=== PATIENT | female | born 1950 | race Caucasian/White ===

== ENCOUNTER → 2016-10-29 | Outpatient (CLI) | payer MEDICARE ==
--- NOTE | 2016-11-01 08:50 | MM ---
Reason for exam: screening (asymptomatic). Last mammogram was performed 1 year ago. History: Patient is postmenopausal. Family history of breast cancer in mother at age 50. Cyst aspiration of the left breast, 2006. Benign excisional biopsy of the left breast. Excisional biopsy of the right breast. Physical Findings: A clinical breast exam by your physician is recommended on an annual basis and results should be correlated with mammographic findings. MG 3D Screening Mammo W/Cad Bilateral CC and MLO view(s) were taken. Prior study comparison: October 17, 2015, bilateral MG 3d screening mammo w/cad. September 25, 2014, mammogram, performed at [facility]. September 03, 2013, mammogram, performed at [facility]. There are scattered fibroglandular densities. Finding: There are typically benign dystrophic, round calcifications in both breasts. There is a chronic nodularity bilaterally. There is no discrete abnormality. ASSESSMENT: Benign, BI-RAD 2 RECOMMENDATION: Routine screening mammogram of both breasts in 1 year.
== END | disposition home or self-care (01) ==
LOC: RADMAMWWP 10:16
PROVIDERS: ATTEND Family Medicine
DX: Z12.31 Encounter for screening mammogram for malignant neoplasm of breast (principal)
CPT/HCPCS: 77063; G0202

== ENCOUNTER → 2017-05-20 | Outpatient (CLI) | payer MEDICARE ==
--- NOTE | 2017-05-20 11:19 | US ---
EXAMINATION TYPE: US thyroid st tissue head/neck DATE OF EXAM: 05/20/2017 COMPARISON: US CLINICAL HISTORY: E04.1 THYROID NODULE. GLAND SIZE: Right Lobe: 4.4 x 2.7 x 3.2 cm Overall Parenchyma: heterogenous Left Lobe: 3.9 x 1.7 x 1.7 cm Overall Parenchyma: heterogeneous Isthmus Thickness: 0.4 cm NODULES RIGHT: # of nodules measured on right: 1 1. 3.9 X 2.6 x 3.0 cm hypoechoic mixed nodule at the mid pole with well-defined margins; present wi th microcalcifications. This nodule is wider than tall and shows intranodular vascularity. Prior size: 3.6 x 2.4 x 2.8 cm LEFT: # of nodules measured on left: 0 ISTHMUS: # of nodules measured in the isthmus: 0 Bilateral neck scanned, no evidence of lymphadenopathy. Right sided nodule takes up entire gland. IMPRESSION: Large right thyroid nodule measuring 3.9 cm slightly increased from the previous exam where it measur ed 3.6 cm. Heterogeneous tissue suggests thyroiditis. Correlate clinically.
== END | disposition home or self-care (01) ==
LOC: RADUSWWP 10:51
PROVIDERS: ATTEND Internal Medicine Endocrinology, Diabetes & Metabolism
DX: E04.1 Nontoxic single thyroid nodule (principal)
CPT/HCPCS: 76536

== ENCOUNTER → 2017-11-23 | Outpatient (CLI) | payer MEDICARE ==
--- NOTE | 2017-11-23 15:14 | MM ---
Reason for exam: screening (asymptomatic). Last mammogram was performed 1 year and 1 month ago. History: Patient is postmenopausal. Family history of breast cancer in mother at age 50. Cyst aspiration of the left breast, 2006. Benign excisional biopsy of the left breast. Excisional biopsy of the right breast. Physical Findings: A clinical breast exam by your physician is recommended on an annual basis and results should be correlated with mammographic findings. MG 3D Screening Mammo W/Cad Bilateral CC and MLO view(s) were taken. Prior study comparison: October 29, 2016, bilateral MG 3d screening mammo w/cad. October 17, 2015, bilateral MG 3d screening mammo w/cad. The breast tissue is heterogeneously dense. This may lower the sensitivity of mammography. Stable benign calcifications. There is no discrete abnormality. No significant changes when compared with prior studies. ASSESSMENT: Benign, BI-RAD 2 RECOMMENDATION: Routine screening mammogram of both breasts in 1 year.
== END | disposition home or self-care (01) ==
LOC: RADMAMWWP 09:02
PROVIDERS: ATTEND Family Medicine
DX: Z12.31 Encounter for screening mammogram for malignant neoplasm of breast (principal)
CPT/HCPCS: 77063; 77067

== ENCOUNTER → 2018-04-25 | Outpatient (CLI) | payer MEDICARE ==
[2018-04-26 03:14] LABS: Folate, Serum 23.5 ng/mL
[2018-04-26 03:35] LABS: T4, Free (Free Thyroxine) 1.2 ng/dL (0.80-1.80)
== END ==
LOC: LABWHC1 16:03
PROVIDERS: ATTEND Internal Medicine Endocrinology, Diabetes & Metabolism
DX: E04.1 Nontoxic single thyroid nodule (principal); E55.9 Vitamin D deficiency, unspecified; Z98.84 Bariatric surgery status
CPT/HCPCS: 36415; 82607; 82746; 84207; 84425; 84439; 84443; 84480

== ENCOUNTER → 2018-10-09 | Outpatient (CLI) | payer MEDICARE ==
[2018-10-09 18:55] LABS: Parathyroid Hormone Intact 69.7 pg/mL (14.0-72.0)
[2018-10-09 20:20] LABS: Albumin 4.2 g/dL (3.80-4.90); Albumin/Globulin Ratio 2.21 (1.60-3.17); Anion Gap 12.4 mmol/L (4.00-12.00); Calcium 9.1 mg/dL (8.7-10.3); Carbon Dioxide 22.6 mmol/L (21.6-31.8); Globulin 1.9 g/dL (1.6-3.3); Potassium 4.3 mmol/L (3.5-5.5); Total Bilirubin 0.8 mg/dL (0.2-1.2); Total Protein 6.1 g/dL (6.2-8.2)
[2018-10-09 20:23] LABS: Vitamin D 25 Hydroxy 51.8 ng/mL (30.0-100.0)
== END ==
LOC: LABWHC1 12:08
PROVIDERS: ATTEND Internal Medicine Endocrinology, Diabetes & Metabolism
DX: E55.9 Vitamin D deficiency, unspecified (principal); E04.1 Nontoxic single thyroid nodule; M81.0 Age-related osteoporosis without current pathological fracture
CPT/HCPCS: 36415; 77080; 80053; 82306; 83970; 84443

== ENCOUNTER → 2018-10-09 | Outpatient (CLI) | payer MEDICARE ==
--- NOTE | 2018-10-09 14:13 | BD ---
EXAMINATION TYPE: Axial Bone Density DATE OF EXAM: 10/09/2018 COMPARISON: 2016 CLINICAL HISTORY: age related osteoporosis Height: 5'3 Weight: 238 FRAX RISK QUESTIONS: Family History (Parent hip fracture): y Secondary Osteoporosis: RISK FACTORS HISTORY OF: Family History of Osteoporosis: y Active: n Postmenopausal woman: y MEDICATIONS: Additional Medications: pain Additional History: EXAM MEASUREMENTS: Bone mineral densitometry was performed using the [employer] System. Bone mineral density as measured about the Lumbar spine is: ----- L1-L4(G/cm2): 0.868 T Score Values are as follows: ----- L2: -2.5 ----- L3: -2.9 ----- L4: -1.3 ----- L1-L4: -2.6 Bone mineral density has: Decreased -6.3%:since study of: 03/04/2016 Bone mineral density about the R hip (g/cm2): 0.807 Bone mineral density about the L hip (g/cm2): 0.773 T Score values are as follows: -----R Neck: -1.7 -----L Neck: -1.9 -----R Total: -1.9 -----L Total: -2.0 Bone mineral density has: Decreased -0.8% since study of: 03/04/2016 IMPRESSION: Osteoporosis (T Score less than -2.5). There is increased fracture risk and therapy is usually indicated based on age. Re-Screen 1-2 years. NOTE: T-SCORE=SD OF THE YOUNG ADULT MEAN.
== END ==
LOC: RADBDWWP 12:13
PROVIDERS: ATTEND Internal Medicine Endocrinology, Diabetes & Metabolism
DX: M81.0 Age-related osteoporosis without current pathological fracture (principal)
CPT/HCPCS: 77080

== ENCOUNTER → 2018-11-06 | Outpatient (CLI) | payer MEDICARE ==
[~2018-11-06] MED LIST: DENOSUMAB 60 MG/ML 1 ML SYRINGE SQ NR
[2018-11-06 14:42] VITALS: BP 121/81; PULSE 73; RESP 16; TEMP 98
== END ==
LOC: PROCWHC3 14:10
PROVIDERS: ATTEND Internal Medicine Endocrinology, Diabetes & Metabolism
DX: M81.0 Age-related osteoporosis without current pathological fracture (principal)
CPT/HCPCS: 96372; J0897

== ENCOUNTER → 2018-11-28 | Outpatient (CLI) | payer MEDICARE ==
--- NOTE | 2018-11-29 10:04 | MM ---
Reason for exam: screening (asymptomatic). Last mammogram was performed 1 year ago. History: Patient is postmenopausal. Family history of breast cancer in mother at age 50 and breast cancer in paternal grandmother. Cyst aspiration of the left breast, 2006. Benign excisional biopsy of the left breast. Excisional biopsy of the right breast. Physical Findings: A clinical breast exam by your physician is recommended on an annual basis and results should be correlated with mammographic findings. MG 3D Screening Mammo W/Cad Bilateral CC and MLO view(s) were taken. Prior study comparison: November 23, 2017, bilateral MG 3d screening mammo w/cad. October 29, 2016, bilateral MG 3d screening mammo w/cad. The breast tissue is heterogeneously dense. This may lower the sensitivity of mammography. Stable benign calcifications in the left breast. There is no discrete abnormality. No significant changes when compared with prior studies. ASSESSMENT: Benign, BI-RAD 2 RECOMMENDATION: Routine screening mammogram of both breasts in 1 year.
== END | disposition home or self-care (01) ==
LOC: RADMAMWWP 13:39
PROVIDERS: ATTEND Family Medicine
DX: Z12.31 Encounter for screening mammogram for malignant neoplasm of breast (principal)
CPT/HCPCS: 77063; 77067

== ENCOUNTER → 2019-04-09 | Outpatient (CLI) | payer MEDICARE ==
[2019-04-09 11:28] LABS: African American GFR (CKD) 103.2 (60.0-200.0); Albumin 4.1 g/dL (3.80-4.90); Albumin/Globulin Ratio 2.05 (1.60-3.17); Anion Gap 10.5 mmol/L (4.00-12.00); BUN/Creat Ratio 18.57 Ratio (12.00-20.00); Calcium 9.2 mg/dL (8.7-10.3); Carbon Dioxide 23.5 mmol/L (21.6-31.8); Potassium 4.4 mmol/L (3.5-5.5); Total Bilirubin 0.9 mg/dL (0.3-1.2); Total Protein 6.1 g/dL (6.2-8.2)
[2019-04-09 11:38] LABS: T4, Free (Free Thyroxine) 1.3 ng/dL (0.80-1.80)
[2019-04-11 20:03] LABS: Creatinine Urine Random 131 mg/dL (20-275); N-Telopeptides/Creat Ratio, Ur 47
== END | disposition home or self-care (01) ==
LOC: LABWHC1 07:27
PROVIDERS: ATTEND Internal Medicine Endocrinology, Diabetes & Metabolism
DX: M81.0 Age-related osteoporosis without current pathological fracture (principal); E04.1 Nontoxic single thyroid nodule
CPT/HCPCS: 36415; 80053; 82523; 84439; 84443

== ENCOUNTER → 2019-05-11 | Outpatient (CLI) | payer MEDICARE ==
[~2019-05-11] MED LIST changes: -DENOSUMAB 60 MG/ML 1 ML SYRINGE SQ NR; +DENOSUMAB 60 MG/ML 1 ML SYRINGE SQ ONE
[2019-05-11 14:20] VITALS: BP 122/81; PULSE 71; RESP 16; TEMP 97.9
== END | disposition home or self-care (01) ==
LOC: PROCWHC3 13:51
PROVIDERS: ATTEND Internal Medicine Endocrinology, Diabetes & Metabolism
DX: M81.0 Age-related osteoporosis without current pathological fracture (principal)
CPT/HCPCS: 96372; J0897

== ENCOUNTER → 2019-05-25 | Outpatient (CLI) | payer MEDICARE | END | disposition home or self-care (01) | LOC: LABWHC1 10:33 | PROVIDERS: ATTEND Internal Medicine Endocrinology, Diabetes & Metabolism | DX: E03.9 Hypothyroidism, unspecified (principal) | CPT/HCPCS: 36415; 84443 ==

== ENCOUNTER → 2020-04-15 | Outpatient (CLI) | payer MEDICARE ==
--- NOTE | 2020-04-15 15:29 | US ---
EXAMINATION TYPE: US thyroid st tissue head/neck DATE OF EXAM: 04/15/2020 COMPARISON: 05/20/2017 CLINICAL HISTORY: E04.1 NONTOXIC SINGLE THYROID NODULE. GLAND SIZE: Right Lobe: Surgically absent Left Lobe: 5.0 x 1.9 x 1.9 cm Overall Parenchyma: heterogeneous Isthmus Thickness: 0.3 cm NODULES RIGHT: # of nodules measured on right: removed LEFT: # of nodules measured on left: 1 1. 0.6 x 0.4 x 0.6 cm hypoechoic solid nodule at the mid pole with margins. This nodule is wider henry n tall and shows intranodular vascularity. No prior ISTHMUS: # of nodules measured in the isthmus: 0 Bilateral neck scanned, no evidence of lymphadenopathy. IMPRESSION: Nonspecific Subcentimeter solid nodule mid pole left thyroid lobe.
== END | disposition home or self-care (01) ==
LOC: RADUSWWP 14:44
PROVIDERS: ATTEND Internal Medicine Endocrinology, Diabetes & Metabolism
DX: E04.1 Nontoxic single thyroid nodule (principal)
CPT/HCPCS: 76536

== ENCOUNTER → 2020-10-13 | Outpatient (CLI) | payer MEDICARE ==
[2020-10-13 14:49] LABS: T4, Free (Free Thyroxine) 1.4 ng/dL (0.78-2.19)
--- NOTE | 2020-10-13 21:20 | BD ---
EXAMINATION TYPE: Axial Bone Density DATE OF EXAM: 10/13/2020 COMPARISON: 10/09/2018 CLINICAL HISTORY: 69-year-old female postmenopausal screening Height: 5 FT 3 1/2 IN Weight: 251 FRAX RISK QUESTIONS: Alcohol (3 or more units per day): NO Family History (Parent hip fracture): YES Glucocorticoids (More than 3mos): NO (Ex: prednisone, prednisolone, methylprednisolone, dexamethasone, and hydrocortisone). History of Fracture in Adulthood: NO Secondary Osteoporosis: 1. Type 1 Diabetes: NO 2. Hyperthyroidism: REMOVED HALF BECAUSE OF A BENIGN TUMOR 3. Menopause before 45: UNSURE 4. Malnutrition: NO 5. Chronic liver disease: NO Rheumatoid Arthritis: NO Current Tobacco Use: NO RISK FACTORS HISTORY OF: Surgery to Spine/Hip(right/left)/Wrist (right/left): NO Family History of Osteoporosis: YES Active: NO Diet low in dairy products/other sources of calcium: NO Postmenopausal woman: PART HYST LATE 40'S Take estrogen and/or progesterone medications: TOOK HRT SEV YEARS IN HER 50'S NO LONGER Lost more than 2 inches in height since high school: NO MEDICATIONS: Additional Medications: MELOXICAM, LEVOTHYROXINE Additional History: PT HAS HAD FOUR INJ OF PROLIA IN THE LAST TWO YEARS EXAM MEASUREMENTS: Bone mineral densitometry was performed using the [employer] System. Bone mineral density as measured about the Lumbar spine is: ----- L1-L4(G/cm2): 0.919 T Score Values are as follows: ----- L2: -2.4 ----- L3: -2.5 ----- L4: -1.2 ----- L1-L4: -2.2 Bone mineral density has: INCREASED 3.5 % since study of: 2018 Bone mineral density about the R hip (g/cm2): 0.775 Bone mineral density about the L hip (g/cm2): 0.787 T Score values are as follows: -----R Neck: -1.9 -----L Neck: -1.8 -----R Total: -2.0 -----L Total: -1.7 Bone mineral density has: INCREASED 1.8 % since study of: 2018 IMPRESSION: Osteopenia (T Score between -2.5 and -1). There is slightly increased risk of fracture and the patient may be considered for treatment. Re-Screen 2-5 years. NOTE: T-SCORE=SD OF THE YOUNG ADULT MEAN.
== END | disposition home or self-care (01) ==
LOC: RADBDWWP 12:48
PROVIDERS: ATTEND Internal Medicine Endocrinology, Diabetes & Metabolism
DX: M85.80 Other specified disorders of bone density and structure, unspecified site (principal); E04.2 Nontoxic multinodular goiter; E55.9 Vitamin D deficiency, unspecified
CPT/HCPCS: 77080; 82306; 84439; 84443

== ENCOUNTER → 2020-11-19 | Outpatient (CLI) | payer MEDICARE ==
--- NOTE | 2020-11-19 13:02 | XR ---
EXAMINATION TYPE: XR lumbar spine 2 or 3V DATE OF EXAM: 11/19/2020 COMPARISON: NONE HISTORY: Pain mostly in the right knee and lower back TECHNIQUE: AP, lateral and coned-down lateral views of the lumbar spine were obtained. FINDINGS: There are 5 nonrib-bearing lumbar-type vertebral bodies. Diffuse bony demineralization.. Th ere is maintenance of the normal lumbar lordosis. There is no loss of vertebral body height. There is mild narrowing of the intervertebral disc space at L5-S1. Diffuse degenerative changes of the facets . Prominent anterior superior osteophyte at the L4 vertebral body level. Severe atherosclerotic calci nation of the abdominal aorta is noted. Mild anterolisthesis of L4 on L5 and L5 on S1. IMPRESSION: 1. No evidence of acute fracture or dislocation lumbar spine. 2. Diffuse bony demineralization. 3. Mild anterolisthesis of L4 on L5 and L5 on S1. Degenerative changes of the facets.
== END | disposition home or self-care (01) ==
LOC: RADXRMAIN 08:56
PROVIDERS: ATTEND Internal Medicine
DX: M47.816 Spondylosis without myelopathy or radiculopathy, lumbar region (principal); M43.16 Spondylolisthesis, lumbar region
CPT/HCPCS: 72100

== ENCOUNTER → 2021-02-20 | Outpatient (CLI) | payer MEDICARE ==
[2021-02-20 15:43] LABS: African American GFR (CKD) 86.6 (60.0-200.0); Albumin 4.2 g/dL (3.80-4.90); Albumin/Globulin Ratio 1.91 (1.60-3.17); Anion Gap 9.2 mmol/L (4.00-12.00); BUN/Creat Ratio 23.75 Ratio (12.00-20.00); Calcium 9.3 mg/dL (8.7-10.3); Carbon Dioxide 23.8 mmol/L (21.6-31.8); Globulin 2.2 g/dL (1.6-3.3); Non-African American GFR(CKD) 74.7 (60.0-200.0); Potassium 4.3 mmol/L (3.5-5.5); Total Bilirubin 0.7 mg/dL (0.2-1.2); Total Protein 6.4 g/dL (6.2-8.2)
== END | disposition home or self-care (01) ==
LOC: LABWHC1 10:26
PROVIDERS: ATTEND Internal Medicine Endocrinology, Diabetes & Metabolism
DX: M81.0 Age-related osteoporosis without current pathological fracture (principal)
CPT/HCPCS: 36415; 80053

== ENCOUNTER → 2021-03-27 | Outpatient (CLI) | payer MEDICARE ==
[~2021-03-27] MED LIST changes: +DENOSUMAB 60 MG/ML 1 ML SYRINGE SQ NR; -DENOSUMAB 60 MG/ML 1 ML SYRINGE SQ ONE
[2021-03-27 10:39] VITALS: BP 121/78; PULSE 82; RESP 16; TEMP 98.8
== END ==
LOC: PROCWHC3 10:12
PROVIDERS: ATTEND Internal Medicine Endocrinology, Diabetes & Metabolism
DX: M81.0 Age-related osteoporosis without current pathological fracture (principal)
CPT/HCPCS: 96372; J0897

== ENCOUNTER → 2021-03-30 | Outpatient (CLI) | payer MEDICARE ==
[2021-03-30 14:58] LABS: Albumin 4.1 g/dL (3.5-5.0); Calcium 8.6 mg/dL (8.4-10.2); Potassium 4.3 mmol/L (3.5-5.1); Total Bilirubin 0.6 mg/dL (0.2-1.3); Total Protein 6.7 g/dL (6.3-8.2)
--- NOTE | 2021-03-30 15:00 | US ---
EXAMINATION TYPE: US thyroid st tissue head/neck DATE OF EXAM: 03/30/2021 COMPARISON: Multiple US. latest = 04/15/20 CLINICAL HISTORY: E04.1 Nontoxic single thyroid nodule. Rt lobe removed GLAND SIZE: Right Lobe: Removed cm Left Lobe: 5.0 x 1.8 x 1.4 cm Overall Parenchyma: heterogeneous Isthmus Thickness: 0.4 cm NODULES RIGHT: # of nodules measured on right: 0 LEFT: # of nodules measured on left: 3 1. 0.6 X 0.6 x 0.4 cm, mid mid, mixed cystic and solid, hypoechoic nodule, which is wider than tall , with smooth margins, without echogenic foci. Prior size: 0.6 x 0.4 x 0.6 cm 2. 0.7 X 0.9 x 0.5 cm, upper mid, solid or almost completely solid, isoechoic nodule, which is wid er than tall, with ill-defined margins, without echogenic foci. TR3. Prior size: Not seen previously 3. 0.9 X 0.7 x 0.6 cm, upper mid, mixed cystic and solid, hypoechoic nodule, which is wider than ta ll, with smooth margins, without echogenic foci. Prior size: Not seen previously ISTHMUS: # of nodules measured in the isthmus: 0 Bilateral neck scanned, no evidence of lymphadenopathy. Multiple other subcentimeter nodules throughout left lobe. IMPRESSION: Mildly suspicious nodule left lobe thyroid. 2017 ACR TI-RADS LEVEL: TR-RADS 3 - Mildly Suspicious: Follow if > 1.5 cm, FNA if > 2.5 cm *Highest TI-RADS level nodule reported
== END | disposition home or self-care (01) ==
LOC: RADUSWWP 14:00
PROVIDERS: ATTEND Internal Medicine Endocrinology, Diabetes & Metabolism
DX: E04.2 Nontoxic multinodular goiter (principal)
CPT/HCPCS: 76536; 80053; 82306; 82523; 83970; 84443

== ENCOUNTER → 2021-06-09 | Outpatient (CLI) | payer MEDICARE ==
--- NOTE | 2021-06-09 15:28 | US ---
EXAMINATION TYPE: US kidneys/renal and bladder DATE OF EXAM: 06/09/2021 COMPARISON: NONE CLINICAL HISTORY: N17.9 acute kidney failure. EXAM MEASUREMENTS: Right Kidney: 14.2x5.7x5.9 cm Left Kidney: 10.5x6.1x5.8 cm Right Kidney: INF cyst 5.6x5.5x5.3cm Left Kidney: INF/ MED cyst 2.6x2.7x2.3cm Bladder: Empty There is no evidence for hydronephrosis at this point in time. No nephrolithiasis is seen. Partially exophytic 5.6 cm thin-walled cyst lower pole of the right kidney and smaller 2.6 cm thin-walled cyst lower pole right kidney. The urinary bladder is poorly distended and is thus suboptimally evaluated . Bilateral ureteral jets are not seen. IMPRESSION: No hydronephrosis is seen bilaterally.
--- NOTE | 2021-06-10 10:00 | ECHOF ---
Referral Reason:N17.9 acute kidney failure MEASUREMENTS -------- HEIGHT: 160.0 cm WEIGHT: 108.9 kg BP: IVSd: 1.1 cm (0.6 - 1.1) LVIDd: 4.1 cm (3.9 - 5.3) LVPWd: 1.4 cm (0.6 - 1.1) EDV(Teich): 76 ml IVSs: 1.7 cm LVIDs: 2.9 cm LVPWs: 1.8 cm %IVS Thck: 48 % ESV(Teich): 32 ml EF(Teich): 58 % %FS: 30 % SV(Teich): 44 ml LA Diam: 3.8 cm (2.7 - 3.8) LALs A4C: 5.4 cm LAAs A4C: 16.7 cm LAESV A-L A4C: 44 ml LAESV MOD A4C: 42 ml LALs A2C: 5.4 cm LAAs A2C: 16.9 cm LAESV A-L A2C: 45 ml LAESV MOD A2C: 43 ml LAESV(A-L): 44 ml LAESV Index (A-L): 21.27 ml/m Ao Diam: 2.4 cm (2.0 - 3.7) LA Diam: 3.9 cm (2.7 - 3.8) AV Cusp: 1.4 cm (1.5 - 2.6) MV E Mario: 0.42 m/s MV DecT: 297 ms MV Dec [place]: 1.4 m/s MV A Mario: 0.76 m/s MV E/A Ratio: 0.56 MV PHT: 86 ms LVOT Vmax: 1.36 m/s LVOT maxP.38 mmHg LVOT Vmax: 1.39 m/s LVOT Vmean: 0.99 m/s LVOT maxP.78 mmHg LVOT meanP.26 mmHg LVOT Env.Ti: 263 ms LVOT VTI: 25.9 cm AV Vmax: 2.05 m/s AV maxP.86 mmHg AV Vmax: 2.13 m/s AV Vmean: 1.40 m/s AV maxP.10 mmHg AV meanP.85 mmHg AV Env.Ti: 240 ms AV VTI: 33.5 cm FINDINGS -------- Sinus rhythm. This was a technically adequate study. The left ventricular size is normal. Left ventricular wall thickness is normal. Overall left vent ricular systolic function is normal with, an EF between 55 - 60 %. The right ventricle is normal in size. Normal LA size by volume 22+/-6 ml/m2. The right atrial size is normal. There is mild aortic stenosis present. The maximum pressure gradient across the aortic valve is 18. 10mmHg. The mitral valve leaflets are mildly thickened. Mild mitral regurgitation is present. Mild tricuspid regurgitation present. Right ventricular systolic pressure is normal at < 35 mmHg. There is no pulmonic regurgitation present. The aortic root size is normal. There is no pericardial effusion. CONCLUSIONS -------- 1. The left ventricular size is normal. 2. Left ventricular wall thickness is normal. 3. Overall left ventricular systolic function is normal with, an EF between 55 - 60 %. 4. The right ventricle is normal in size. 5. Normal LA size by volume 22+/-6 ml/m2. 6. The right atrial size is normal. 7. There is mild aortic stenosis present. 8. The maximum pressure gradient across the aortic valve is 18.10mmHg. 9. The mitral valve leaflets are mildly thickened. 10. Mild mitral regurgitation is present. 11. Mild tricuspid regurgitation present. 12. There is no pulmonic regurgitation present. 13. The aortic root size is normal. 14. There is no pericardial effusion. CATERING DIRECTOR: Naomie Rodrigues RDCS
== END | disposition home or self-care (01) ==
LOC: RADECHMAIN 14:29
PROVIDERS: ATTEND Internal Medicine
DX: N17.9 Acute kidney failure, unspecified (principal); I08.3 Combined rheumatic disorders of mitral, aortic and tricuspid valves
CPT/HCPCS: 76770; 93306

== ENCOUNTER → 2021-06-13 | Outpatient (CLI) | payer MEDICARE ==
--- NOTE | 2021-06-13 13:06 | MR ---
EXAMINATION TYPE: MR lumbar spine wo con DATE OF EXAM: 06/13/2021 COMPARISON: Plain film 11/19/2020 HISTORY: Spondylosis of lumbar region, pain TECHNIQUE: Multiplanar, multisequence images of the lumbar spine were acquired without IV contrast. L1-L2: Normal disc appearance without desiccation. No herniation, protrusion or disc bulging. No ca nal stenosis is present. Foramina are patent bilaterally. L2-L3: Normal disc appearance without desiccation. No herniation, protrusion or disc bulging. No ca nal stenosis is present. Foramina are patent bilaterally. L3-L4: Normal disc appearance without desiccation. No herniation, protrusion or disc bulging. No ca nal stenosis is present. Foramina are patent bilaterally. There is some facet arthropathy with hyper trophy ligamentum flavum L4-L5: There is facet arthropathy with hypertrophy ligamentum flavum, probable synovial cyst extends from the left facet measuring 6 to 7 mm causing posterior lateral mass effect on the thecal sac, left greater than right, there is encroachment on the lateral recesses. There is a trefoil appearance of the thecal sac, moderate to severe spinal stenosis. L5-S1: Normal disc appearance without desiccation. No herniation, protrusion or disc bulging. No ca nal stenosis is present. Foramina are patent bilaterally. Facet arthropathy changes present. Lumbar segments are intact. No paraspinal masses are identified. Conus medullaris has a normal appe arance. Lumbar vertebral bodies show preserved height and there is no significant foraminal encroachm ent. There is multilevel spondylosis with endplate discogenic marrow signal change. Minimal anterolis thesis grade 1 L5-S1, L4-5. Cortical cysts are associated with the kidneys bilaterally. IMPRESSION: Facet arthropathy, degenerative disc disease, there is spinal stenosis greatest at L4-5.
== END | disposition home or self-care (01) ==
LOC: RADMRIMAIN 11:20
PROVIDERS: ATTEND Internal Medicine
DX: M47.816 Spondylosis without myelopathy or radiculopathy, lumbar region (principal); M48.061 Spinal stenosis, lumbar region without neurogenic claudication; M51.36 Other intervertebral disc degeneration, lumbar region
CPT/HCPCS: 72148

== ENCOUNTER → 2021-07-06 | Outpatient (CLI) | payer MEDICARE ==
--- NOTE | 2021-07-06 11:38 | MM ---
Reason for exam: screening (asymptomatic). Last mammogram was performed 2 years and 7 months ago. History: Patient is postmenopausal. Family history of breast cancer in mother at age 50 and breast cancer in paternal grandmother. Cyst aspiration of the left breast, 2006. Benign excisional biopsy of the left breast. Excisional biopsy of the right breast. Physical Findings: A clinical breast exam by your physician is recommended on an annual basis and results should be correlated with mammographic findings. MG 3D Screening Mammo W/Cad Bilateral CC and MLO view(s) were taken. Prior study comparison: November 28, 2018, bilateral MG 3d screening mammo w/cad. November 23, 2017, bilateral MG 3d screening mammo w/cad. There are scattered fibroglandular densities. Finding: There are typically benign vascular, round, linear calcifications. There is a chronic nodularity in the right breast. There is no discrete abnormality. ASSESSMENT: Benign, BI-RAD 2 RECOMMENDATION: Routine screening mammogram of both breasts in 1 year.
== END | disposition home or self-care (01) ==
LOC: RADMAMWWP 09:07
PROVIDERS: ATTEND Internal Medicine
DX: Z12.31 Encounter for screening mammogram for malignant neoplasm of breast (principal); Z80.3 Family history of malignant neoplasm of breast; Z78.0 Asymptomatic menopausal state
CPT/HCPCS: 77063; 77067

== ENCOUNTER → 2021-07-16 | Outpatient (CLI) | payer MEDICARE ==
[2021-07-16 08:46] LABS: Appearance,Urine Clear (Clear); Bacteria,Urine Rare /hpf; Bilirubin,Urine Negative (Negative); Blood,Urine Negative (Negative); Color,Urine Yellow; Glucose,Urine (UA) Negative (Negative); Ketones,Urine Negative (Negative); Leukocyte Esterase,Urine Small (Negative); Mucus,Urine Rare /hpf; Nitrite,Urine Negative (Negative); Protein,Urine Negative (Negative); RBC,Urine <1 /hpf (0-5); Specific Gravity,Urine 1.025 (1.001-1.035); Squamous Epithelial Cell,Urine 1 /hpf (0-4); Urobilinogen,Urine <2.0 mg/dL (<2.0); WBC,Urine 2 /hpf (0-5)
[2021-07-16 11:04] LABS: Basophils # (A) 0.04 X 10*3/uL (0.00-0.10); Basophils % (A) 0.7 %; Eosinophils # (A) 0.12 X 10*3/uL (0.04-0.35); HGB 13.4 g/dL (12.0-15.0); Lymphocytes # (A) 1.77 X 10*3/uL (0.90-5.00); Lymphocytes % (A) 29.4 %; MCH 29.8 pg (27.0-32.0); MCHC 31.9 g/dL (32.0-37.0); MCV 93.5 fL (80.0-97.0); Mean Platelet Volume 9.5 fL (9.5-12.2); Monocytes # (A) 0.63 X 10*3/uL (0.20-1.00); Monocytes % (A) 10.4 %; Neutrophils # (A) 3.46 X 10*3/uL (1.80-7.70); Neutrophils % (A) 57.3 %; Platelet Count 332 X 10*3/uL (140-440); RBC 4.49 X 10*6/uL (4.10-5.20); RDW 12.4 % (11.5-14.5); WBC 6.03 X 10*3/uL (4.50-10.00)
[2021-07-16 11:25] LABS: ALT 18 U/L (8-44); AST 20 U/L (13-35); African American GFR (CKD) 101.7 (60.0-200.0); Alkaline Phosphatase 79 U/L (41-126); BUN/Creat Ratio 19.29 Ratio (12.00-20.00); Blood Urea Nitrogen 13.5 mg/dL (9.0-27.0); Calcium 8.9 mg/dL (8.7-10.3); Carbon Dioxide 21.4 mmol/L (20.0-27.5); Chloride 105 mmol/L (96-109); Chol/HDL Ratio 3.23 Ratio; Globulin 2.1 g/dL (1.6-3.3); Glucose 103 mg/dL (70-110); LDL Cholesterol,Calculated 125.8 mg/dL (0.0-131.0); Non-African American GFR(CKD) 87.8 (60.0-200.0); Potassium 4.2 mmol/L (3.5-5.5); Sodium 138 mmol/L (135-145); Total Protein 6.1 g/dL (6.2-8.2)
== END | disposition home or self-care (01) ==
LOC: LABWHC1 07:21
PROVIDERS: ATTEND Internal Medicine
DX: E03.9 Hypothyroidism, unspecified (principal); E78.2 Mixed hyperlipidemia; N17.9 Acute kidney failure, unspecified; N28.1 Cyst of kidney, acquired
CPT/HCPCS: 36415; 80053; 80061; 81001; 84439; 84443; 85025

== ENCOUNTER → 2021-08-26 | Outpatient (CLI) | payer MEDICARE ==
--- NOTE | 2021-08-26 12:40 | XR ---
EXAMINATION TYPE: XR chest 2V DATE OF EXAM: 08/26/2021 COMPARISON: NONE TECHNIQUE: PA and lateral views submitted. HISTORY: Preop FINDINGS: The lungs are clear and there is no pneumothorax, pleural effusion, or focal pneumonia. Coarsened i nterstitium. Mild degenerative change spine. Diffuse osteopenia. IMPRESSION: 1. No acute process. Correlate for mild chronic interstitial lung disease.
[2021-08-26 13:14] LABS: Partial Thromboplastin Time 23.9 sec (22.0-30.0); Prothrombin Time 11.3 sec (9.0-12.0)
[2021-08-26 14:22] LABS: Appearance,Urine Clear (Clear); Bacteria,Urine Rare /hpf; Bilirubin,Urine Negative (Negative); Blood,Urine Negative (Negative); Color,Urine Yellow; Glucose,Urine (UA) Negative (Negative); Hyaline Casts,Urine 1 /lpf (0-2); Ketones,Urine Negative (Negative); Leukocyte Esterase,Urine Moderate (Negative); Mucus,Urine Rare /hpf; Nitrite,Urine Negative (Negative); Protein,Urine Negative (Negative); RBC,Urine 1 /hpf (0-5); Specific Gravity,Urine 1.017 (1.001-1.035); Squamous Epithelial Cell,Urine 2 /hpf (0-4); Urobilinogen,Urine <2.0 mg/dL (<2.0); WBC,Urine 2 /hpf (0-5)
[2021-08-26 19:00] LABS: Basophils # (A) 0.06 X 10*3/uL (0.00-0.10); Basophils % (A) 0.8 %; Eosinophils # (A) 0.13 X 10*3/uL (0.04-0.35); Eosinophils % (A) 1.7 %; HCT 42.2 % (37.2-46.3); HGB 13.5 g/dL (12.0-15.0); Immature Grans, Automated 0.3 %; Lymphocytes # (A) 2.17 X 10*3/uL (0.90-5.00); MCH 30.1 pg (27.0-32.0); Monocytes # (A) 0.81 X 10*3/uL (0.20-1.00); Monocytes % (A) 10.5 %; NRBC Per 100 WBC 0 /100 WBCS (0.0-0.0); Neutrophils # (A) 4.56 X 10*3/uL (1.80-7.70); Neutrophils % (A) 58.7 %; Platelet Count 316 X 10*3/uL (140-440); RBC 4.49 X 10*6/uL (4.10-5.20); RDW 12.3 % (11.5-14.5); WBC 7.75 X 10*3/uL (4.50-10.00)
[2021-08-26 19:12] LABS: African American GFR (CKD) 89.8 (60.0-200.0); Albumin 4.1 g/dL (3.8-4.9); Albumin/Globulin Ratio 1.6 (1.60-3.17); Anion Gap 15.3 mmol/L (10.00-18.00); BUN/Creat Ratio 15.72 Ratio (12.00-20.00); Blood Urea Nitrogen 12.2 mg/dL (9.0-27.0); Calcium 9.3 mg/dL (8.7-10.3); Carbon Dioxide 20.3 mmol/L (20.0-27.5); Globulin 2.6 g/dL (1.6-3.3); Non-African American GFR(CKD) 77.5 (60.0-200.0); Potassium 4.1 mmol/L (3.5-5.5); Total Protein 6.7 g/dL (6.2-8.2)
== END | disposition home or self-care (01) ==
LOC: RADXRMAIN 12:22
PROVIDERS: ATTEND Neurological Surgery
DX: Z01.818 Encounter for other preprocedural examination (principal); M48.062 Spinal stenosis, lumbar region with neurogenic claudication
CPT/HCPCS: 71046; 80053; 81001; 83036; 85025; 85610; 85730; 87070

== ENCOUNTER → 2021-11-05 | Outpatient (CLI) | payer MEDICARE ==
--- NOTE | 2021-11-05 10:30 | XR ---
EXAM TYPE: LUMBAR SPINE X RAY SERIES COMPARISON: 11/19/2020 HISTORY: Postop TECHNIQUE: 4 views are submitted. FINDINGS: Alignment is anatomic. The pedicles are intact. The transverse processes are intact. There is post surgical changes involving the abdomen as well as the lower lumbar spine L4-L5 grade 1 anterior listh esis. There is multilevel facet arthropathy from levels L2-S1 most marked at L4-5 and L5-S1 with susp ected foraminal encroachment. Large spur anteriorly at L4. Vascular calcifications and diffuse osteop enia noted. Upon flexion and extension anterolisthesis appears to be similar in appearance. IMPRESSION: 1. Postoperative change with multilevel facet arthropathy, diffuse osteopenia and grade 1 anterolisth esis L4 on L5.
== END | disposition home or self-care (01) ==
LOC: RADXRMAIN 09:28
PROVIDERS: ATTEND Neurological Surgery
DX: M47.816 Spondylosis without myelopathy or radiculopathy, lumbar region (principal); M43.16 Spondylolisthesis, lumbar region; M85.88 Other specified disorders of bone density and structure, other site
CPT/HCPCS: 72114

== ENCOUNTER → 2021-11-05 | Outpatient (CLI) | payer MEDICARE | END | disposition home or self-care (01) | LOC: LABWHC1 10:17 | PROVIDERS: ATTEND Internal Medicine Endocrinology, Diabetes & Metabolism | DX: M81.0 Age-related osteoporosis without current pathological fracture (principal) | CPT/HCPCS: 36415; 82306; 82523; 83970 ==

== ENCOUNTER → 2021-12-07 | Outpatient (CLI) | payer MEDICARE ==
[~2021-12-07] MED LIST changes: -DENOSUMAB 60 MG/ML 1 ML SYRINGE SQ NR; +DENOSUMAB 60 MG/ML 1 ML SYRINGE SQ ONE
[2021-12-07 08:14] VITALS: BP 125/61; PULSE 85; RESP 16; TEMP 98.1
== END ==
LOC: PROCWHC3 07:59
PROVIDERS: ATTEND Internal Medicine Endocrinology, Diabetes & Metabolism
DX: M81.0 Age-related osteoporosis without current pathological fracture (principal)
CPT/HCPCS: 96372; J0897

== ENCOUNTER → 2022-03-01 | Outpatient (CLI) | payer MEDICARE ==
--- NOTE | 2022-03-01 11:39 | US ---
EXAMINATION TYPE: US carotid duplex BILAT DATE OF EXAM: 03/01/2022 COMPARISON: NONE CLINICAL HISTORY: I65.23 CAROTID STENOSIS. TECHNIQUE: Carotid duplex ultrasound examination. Indirect Doppler criteria was utilized. FINDINGS: EXAM MEASUREMENTS: RIGHT: Peak Systolic Velocity (PSV) cm/sec ----- Right CCA: 67.9 ----- Right ICA: 111 ----- Right ECA: 136 ICA/CCA ratio: 1.63 RIGHT: End Diastole cm/sec ----- Right CCA: 11.6 ----- Right ICA: 23.0 ----- Right ECA: 9.2 LEFT: Peak Systolic Velocity (PSV) cm/sec ----- Left CCA: 77.4 ----- Left ICA: 172 ----- Left ECA: 108 ICA/CCA ratio: 2.22 LEFT: End Diastole cm/sec ----- Left CCA: 22.2 ----- Left ICA: 45.5 ----- Left ECA: 16.9 VERTEBRALS (direction of flow): Right Vertebral: Antegrade Left Vertebral: Antegrade Rhythm: Normal DIRECTOR OF [employer]POR[employer] SALES NOTES: Mild plaque bilateral bifurcations. Tortuous left ICA with elevated velocities IMPRESSION: 1. Less than 50% stenosis of the right carotid bifurcations 2. 50-69% stenosis of the left carotid bifurcation by peak systolic velocity and ICA/CCA ratio. Criteria for Assigning % of Stenosis / Diameter reduction (Estimation based on the indirect measurements of the internal carotid artery velocities (ICA PSV). 1. Normal (no stenosis)=ICA PSV < 125 cm/s: ratio < 2.0: ICA EDV<40 cm/s. 2. Less than 50% stenosis=ICA PSV < 125 cm/s: ratio < 2.0: ICA EDV<40 cm/s. 3. 50 to 69% stenosis=ICA PSV of 125 to 230 cm/s: ration 2.0 ? 4.0: ICA EDV 40-100 cm/s. 4. Greater than 70% stenosis to near occlusion= ICA PSV > 230 cm/s: ratio > 4.0: ICA EDV > 100 cm/s. 5. Near occlusion= ICA PSV velocities may be low or undetectable: variable ratio and ICA EDV. 6. Total occlusion=unable to detect flow.
== END | disposition home or self-care (01) ==
LOC: RADUSWWP 10:41
PROVIDERS: ATTEND Internal Medicine
DX: I65.23 Occlusion and stenosis of bilateral carotid arteries (principal)
CPT/HCPCS: 93880

== ENCOUNTER → 2022-04-06 | Outpatient (CLI) | payer MEDICARE ==
--- NOTE | 2022-04-07 08:50 | CA ---
Transthoracic Echo Report Name: Susy Adan Age: 71 Gender: F : 1950 Exam Date: 04/06/2022 15:06 Exam Location: [facility] Ht (in): 63 Wt (lb): 235 Ordering Physician: Deisy Alexis MD Attending/Referring Phys: Veneer Cutter Carlie Ortega RDCS Procedure CPT: Indications: I35.0 VALVE STENOSIS I65.23 AROTID STENOSIS Cardiac Hx: Technical Quality: Fair Contrast 1: Total Dose (mL): Contrast 2: Total Dose (mL): MEASUREMENTS (Male / Female) Normal Values 2D ECHO LV Diastolic Diameter PLAX 4.5 cm 4.2 - 5.9 / 3.9 - 5.3 cm LV Systolic Diameter PLAX 2.8 cm IVS Diastolic Thickness 1.3 cm 0.6 - 1.0 / 0.6 - 0.9 cm LVPW Diastolic Thickness 1.0 cm 0.6 - 1.0 / 0.6 - 0.9 cm LV Relative Wall Thickness 0.5 RV Internal Dim ED PLAX 2.7 cm LVOT Diameter 2.0 cm LA Volume 27.6 cm??? 18 - 58 / 22 - 52 cm??? M-MODE Aortic Root Diameter MM 2.7 cm LA Systolic Diameter MM 4.1 cm LA Ao Ratio MM 1.5 AV Cusp Separation MM 2.1 cm DOPPLER AV Peak Velocity 183.4 cm/s AV Peak Gradient 13.5 mmHg LVOT Peak Velocity 140.6 cm/s LVOT Peak Gradient 7.9 mmHg AV Area Cont Eq pk 2.4 cm??? MV Area PHT 3.8 cm??? Mitral E Point Velocity 65.3 cm/s Mitral A Point Velocity 70.2 cm/s Mitral E to A Ratio 0.9 MV Deceleration Time 202.0 ms MV E' Velocity 5.1 cm/s Mitral E to MV E' Ratio 12.7 TR Peak Velocity 251.8 cm/s TR Peak Gradient 25.4 mmHg Right Ventricular Systolic Press 30.0 mmHg FINDINGS Left Ventricle Mildly increased left ventricular wall thickness. Normal left ventricular systolic function with no obvious regional wall motion abnormalities. Left ventricular ejection fraction is estimated at 55-60 %. Right Ventricle Normal right ventricular size and function. Right ventricular systolic pressure within normal limits. Right Atrium Normal right atrial size. Left Atrium Normal left atrial size. Mitral Valve Structurally normal mitral valve. Mild mitral annular calcification. mild mitral regurgitation. Aortic Valve Aortic valve sclerosis. Thickened aortic valve without stenosis. No aortic stenosis. No aortic regurgitation. Tricuspid Valve Structurally normal tricuspid valve. Mild tricuspid regurgitation. Pulmonic Valve Pulmonic valve not well visualized. Pericardium No pericardial effusion. Aorta Normal size aortic root and proximal ascending aorta. CONCLUSIONS 1. Normal left ventricle size and systolic function 2. Mild mitral and tricuspid regurgitation Previewed by: Dr. Rosemary Vera MD (Electronically Signed) Final Date: 07 April 2022 08:49
== END | disposition home or self-care (01) ==
LOC: RADECHMAIN 14:45
PROVIDERS: ATTEND Internal Medicine
DX: I08.1 Rheumatic disorders of both mitral and tricuspid valves (principal)
CPT/HCPCS: 93306

== ENCOUNTER → 2022-07-09 | Outpatient (CLI) | payer MEDICARE ==
--- NOTE | 2022-07-12 08:02 | MM ---
Reason for Exam: Screening (asymptomatic). Last screening mammogram was performed 12 month(s) ago. Patient History: Menarche at age 13. First Full-Term at age 26. Postmenopausal. 2006, Cyst Aspiration on the Left side. Benign Excisional Biopsy on the left side. Excisional Biopsy on the Right side. Paternal grandmother had breast cancer. Mother had breast cancer, age 50. Risk Values: Rose Marie 5 year model risk: 5.1%. NCI Lifetime model risk: 13.6%. Prior Study Comparison: 11/23/2017 Bilateral Screening Mammogram, [facility]. 11/28/2018 Bilateral Screening Mammogram, [facility]. 07/06/2021 Bilateral Screening Mammogram, [facility]. Tissue Density: There are scattered fibroglandular densities. Findings: Analyzed By CAD. There is no suspicious group of microcalcifications or new suspicious mass in either breast. Overall Assessment: Negative, BI-RAD 1 Management: Screening Mammogram of both breasts in 1 year. A clinical breast exam by your physician is recommended on an annual basis and results should be correlated with mammographic findings. [facility] will attempt to contact patient to return for supplemental views and ultrasound if indicated. Electronically signed and approved by: Drew Anderson DO
== END | disposition home or self-care (01) ==
LOC: RADMAMWWP 11:29
PROVIDERS: ATTEND Internal Medicine
DX: Z12.31 Encounter for screening mammogram for malignant neoplasm of breast (principal); Z78.0 Asymptomatic menopausal state; Z80.3 Family history of malignant neoplasm of breast
CPT/HCPCS: 77063; 77067

== ENCOUNTER → 2022-07-19 | Outpatient (CLI) | payer MEDICARE ==
[2022-07-19 17:58] LABS: Albumin/Globulin Ratio 1.74 (1.60-3.17); Anion Gap 11.2 mmol/L (10.00-18.00); BUN/Creat Ratio 18.14 Ratio (12.00-20.00); Blood Urea Nitrogen 12.7 mg/dL (9.0-27.0); Calcium 8.9 mg/dL (8.7-10.3); Carbon Dioxide 23.8 mmol/L (20.0-27.5); Globulin 2.3 g/dL (1.6-3.3); Non-African American GFR(CKD) 87.2 (60.0-200.0); Potassium 4.1 mmol/L (3.5-5.5); Total Bilirubin 0.5 mg/dL (0.30-1.20); Total Protein 6.3 g/dL (6.2-8.2)
== END ==
LOC: LABWHC1 12:00
PROVIDERS: ATTEND Internal Medicine Endocrinology, Diabetes & Metabolism
DX: M81.0 Age-related osteoporosis without current pathological fracture (principal)
CPT/HCPCS: 36415; 80053

== ENCOUNTER → 2022-10-25 | Outpatient (CLI) | payer MEDICARE ==
--- NOTE | 2022-10-25 11:39 | BD ---
EXAMINATION TYPE: Axial Bone Density DATE OF EXAM: 10/25/2022 CLINICAL HISTORY: 71 years old Female. ICD-10 CODE: M81.0 AGE RELATED OSTEOPOROSIS Comparison: Prior DEXA bone scan October 13, 2020 Height: 62.25 Weight: 231.4 FRAX RISK QUESTIONS: Alcohol (3 or more units per day): no Family History (Parent hip fracture): Mother Glucocorticoids (More than 3mos): no History of Fracture in Adulthood: no Secondary Osteoporosis: 1. Type 1 Diabetes: no 2. Hyperthyroidism: no 3. Menopause before 45: no 4. Malnutrition: no 5. Chronic liver disease: no Rheumatoid Arthritis: no Current Tobacco Use: no RISK FACTORS HISTORY OF: Hip Fracture (Right/Left): no Spine Fracture: no History of Wrist Fracture: no Surgery to Spine/Hip(right/left)/Wrist (right/left): Spinal Fusion L4-L5 When: September 2021 Family History of Osteoporosis: mother Active: yes Diet low in dairy products/other sources of calcium: yes Postmenopausal woman: yes Take estrogen and/or progesterone medications: no Lost more than 2 inches in height since high school: no Frequent falls: no Poor Health: no Hyperparathyroidism: no Adrenal Insufficiency: no MEDICATIONS: Prednisone or other steroids: no Thyroid Medications: Levothyroxine How Long: past 5 years Osteoporosis Medications: Prolia injection twice a year How Long: past 4 years Additional Medications: Multi Vit., Calcium, Cholesterol Meds, Prolia, Vit D Additional History: EXAM MEASUREMENTS: Bone mineral density about the R hip (g/cm2): 0.741 Bone mineral density about the L hip (g/cm2): 0.824 T Score values are as follows: -----R Neck: -1.8 -----L Neck: -1.6 -----R Total: -2.1 -----L Total: -1.5 Z Score values are as follows: -----R Neck: -0.8 -----L Neck: -0.6 -----R Total: -1.4 -----L Total: -0.7 Bone mineral density has: increased 1.0 % since study of: 10/13/2020 FRAX%s: The graph provided illustrates a 15.9% chance for a major osteoporotic fx and a 5.0% chance f or the hips probability for fx in 10 years time. IMPRESSION: Osteopenia (T Score between -2.5 and -1) remains present. There remains slightly increased risk of fracture and the patient may be considered for treatment. Re-Screen 2-5 years. NOTE: T-SCORE=SD OF THE YOUNG ADULT MEAN.
== END | disposition home or self-care (01) ==
LOC: RADBDWWP 08:42
PROVIDERS: ATTEND Internal Medicine
DX: M81.0 Age-related osteoporosis without current pathological fracture (principal); M85.89 Other specified disorders of bone density and structure, multiple sites
CPT/HCPCS: 77080

== ENCOUNTER → 2022-10-25 | Outpatient (CLI) | payer MEDICARE ==
--- NOTE | 2022-10-25 09:33 | US ---
EXAMINATION TYPE: US thyroid st tissue head/neck DATE OF EXAM: 10/25/2022 COMPARISON: US 2020 CLINICAL INDICATION: Female, 71 years old with history of E04.1 SINGLE THYROID NODULE; Thyroid nodule s, history of right thyroidectomy GLAND SIZE: Left Lobe: 4.0 x 1.6 x 1.9 cm Overall Parenchyma: heterogeneous Isthmus Thickness: 0.5 cm NODULES RIGHT: surgically absent LEFT: # of nodules measured on left: multiple subcentimeter nodules with largest 2 described below 1. 0.8 X 0.5 x 0.7 cm, upper medial, solid or almost completely solid, isoechoic nodule, which is w ider than tall, with smooth margins, without echogenic foci. Prior size: 0.9 x 0.6 x 0.7 cm ISTHMUS: # of nodules measured in the isthmus: 0 Bilateral neck scanned, no evidence of lymphadenopathy. Right thyroid lobe remains absent. Left thyroid lobe is normal in size and heterogeneous in appearanc e with stable near 8 mm cystic nodule lower pole level. No new greater than 1 cm solid nodules. Techn ologist mathew a isoechoic near 7 mm area of medial upper aspect presumed lobulated tissue over small nodule. IMPRESSION: As above. 2017 ACR TI-RADS LEVEL: *Highest TI-RADS level nodule reported
== END | disposition home or self-care (01) ==
LOC: RADUSWWP 08:45
PROVIDERS: ATTEND Internal Medicine Endocrinology, Diabetes & Metabolism
DX: E04.1 Nontoxic single thyroid nodule (principal); E89.0 Postprocedural hypothyroidism
CPT/HCPCS: 76536

== ENCOUNTER → 2023-02-08 | Outpatient (CLI) | payer MEDICARE ==
[2023-02-08 20:55] LABS: ALT 24 U/L (8-44); AST 23 U/L (13-35); Albumin 4.3 d/dL (3.8-4.9); Albumin/Globulin Ratio 2.26 Ratio (1.60-3.17); Alkaline Phosphatase 94 U/L (41-126); Blood Urea Nitrogen 18.1 mg/dL (9.0-27.0); Calcium 9.5 mg/dL (8.7-10.3); Carbon Dioxide 22.4 mmol/L (21.6-31.8); Chloride 107 mmol/L (96-109); Globulin 1.9 d/dL (1.6-3.3); Glucose 122 mg/dL (70-110); Potassium 4.1 mmol/L (3.5-5.5); Sodium 142 mmol/L (135-145); Total Bilirubin 0.4 mg/dL (0.3-1.2); Total Protein 6.2 d/dL (6.2-8.2)
== END | disposition home or self-care (01) ==
LOC: LABWHC1 13:36
PROVIDERS: ATTEND Internal Medicine Endocrinology, Diabetes & Metabolism
DX: M81.0 Age-related osteoporosis without current pathological fracture (principal)
CPT/HCPCS: 36415; 80053; 82306; 82523; 83970; 84443

== ENCOUNTER → 2023-05-19 | Outpatient (CLI) | payer MEDICARE ==
[2023-05-19 08:30] LABS: Basophils % (A) 1 %; Eosinophils # (A) 0.1 k/uL (0-0.7); Eosinophils % (A) 2 %; HCT 40.8 % (34.0-46.0); HGB 13.8 gm/dL (11.4-16.0); Lymphocytes # (A) 1.5 k/uL (1.0-4.8); Lymphocytes % (A) 29 %; MCH 31.8 pg (25.0-35.0); MCHC 33.8 g/dL (31.0-37.0); MCV 94.1 fL (80.0-100.0); Mean Platelet Volume 7.3; Monocytes # (A) 0.5 k/uL (0-1.0); Monocytes % (A) 9 %; Neutrophils % (A) 58 %; Platelet Count 289 k/uL (150-450); RBC 4.33 m/uL (3.80-5.40); RDW 12.4 % (11.5-15.5); WBC 5.2 k/uL (3.8-10.6)
[2023-05-19 08:44] LABS: ALT 31 U/L (4-34); AST 28 U/L (14-36); African American GFR (CKD) >90 (>60 ml/min/1.73 sqM); Albumin 3.9 g/dL (3.5-5.0); Albumin/Globulin Ratio 1.6; Alkaline Phosphatase 73 U/L (38-126); Anion Gap 8 mmol/L; Blood Urea Nitrogen 16 mg/dL (7-17); Calcium 8.7 mg/dL (8.4-10.2); Carbon Dioxide 24 mmol/L (22-30); Chloride 108 mmol/L (98-107); Globulin 2.4 g/dL; Glucose 103 mg/dL (74-99); Non-African American GFR(CKD) >90 (>60 ml/min/1.73 sqM); Potassium 4.2 mmol/L (3.5-5.1); Sodium 140 mmol/L (137-145); Total Bilirubin 0.9 mg/dL (0.2-1.3); Total Protein 6.3 g/dL (6.3-8.2)
[2023-05-19 08:51] LABS: NT-Pro-B-Type Natriuretic Pept 173 pg/mL
--- NOTE | 2023-05-19 11:44 | CT ---
EXAMINATION TYPE: CT angio head neck DATE OF EXAM: 05/19/2023 HISTORY: Left Carotid Stenosis COMPARISON: Carotid Doppler ultrasound 03/01/2022 CT DLP: 288 mGycm. Automated Exposure Control for Dose Reduction was Utilized. TECHNIQUE: CTA scan of the head and neck is performed without and with IV Contrast, patient injected with 65 ml mL of Isovue 370, axial images are obtained, coronal and sagittal reformatted images are reviewed. 3D reconstructed images are created on an independent workstation and reviewed. FINDINGS: Carotid/Vascular Structures: There is mild atherosclerotic plaque involving the left carotid bulb and proximal ICA with maximal st enosis measured at approximately 30%. No significant hemodynamic stenosis. The right carotid bifurcation and proximal ICA are widely patent. There is mild atherosclerotic plaque of the aortic arch. Atherosclerotic change of the origin of the left subclavian artery no definite significant stenosis. Bilateral visualized portions of subclavian artery enhance normally. Vertebral arteries are fairly symmetric in size with slight dominance on the left. Intracranial ather osclerotic change most marked involving the cavernous segment bilateral ICA. There is heterogeneous uptake involving the left lobe of the thyroid. The right lobe not well seen. Hypertrophic and degenerative changes of the spine. Vertebrobasilar and carotid systems are patent intracranially. A hypoplastic A1 segment bilaterally. No evidence of sizable aneurysm or vascular malformation. IMPRESSION: 1. No significant stenosis of the carotid bifurcation bilaterally. 2. No evidence of sizable aneurysm or vascular malformation. NASCET criteria was used in interpretation of this exam?
[2023-05-19 16:44] LABS: Chol/HDL Ratio 1.89 Ratio; LDL Cholesterol,Calculated 54.4 mg/dL (0.0-131.0); VLDL Calculation 11.48 mg/dL (5.00-40.00)
== END | disposition home or self-care (01) ==
LOC: RADCTMAIN 07:47
PROVIDERS: ATTEND Internal Medicine
DX: E03.9 Hypothyroidism, unspecified (principal); I65.22 Occlusion and stenosis of left carotid artery; E78.2 Mixed hyperlipidemia; G62.9 Polyneuropathy, unspecified; M85.851 Other specified disorders of bone density and structure, right thigh; I35.0 Nonrheumatic aortic (valve) stenosis
CPT/HCPCS: 83880; 80061; 80053; 84443; 85025; 82306; 83036; 70496; 70498; 36415; Q9967

== ENCOUNTER → 2023-07-20 | Outpatient (CLI) | payer MEDICARE ==
--- NOTE | 2023-07-22 13:09 | MM ---
Reason for Exam: Screening (asymptomatic). Last screening mammogram was performed 12 month(s) ago. Patient History: Menarche at age 13. First Full-Term at age 26. Hysterectomy at age 50. Postmenopausal. 2007, Cyst Aspiration on the Left side. Benign Excisional Biopsy on the left side. Excisional Biopsy on the Right side. Paternal grandmother had breast cancer. Mother had breast cancer, age 50. Risk Values: Rose Marie 5 year model risk: 5.2%. NCI Lifetime model risk: 13.0%. Prior Study Comparison: 11/28/2018 Bilateral Screening Mammogram, [facility]. 07/06/2021 Bilateral Screening Mammogram, [facility]. 07/09/2022 Bilateral MG 3D screening mammo w/cad, [facility]. Tissue Density: There are scattered fibroglandular densities. Findings: Analyzed By CAD. There is no suspicious group of microcalcifications or new suspicious mass in either breast. Bilateral benign appearing calcifications. There is no suspicious group of microcalcifications or new suspicious mass in either breast. Bilateral benign appearing calcifications. There is a 7 mm nodule within the central margin of the left breast. Overall Assessment: Incomplete: need additional imaging evaluation, BI-RAD 0 Management: Special View Mammogram of the left breast. . Patient should continue monthly self-breast exams. A clinical breast exam by your physician is recommended on an annual basis. This exam should not preclude additional follow-up of suspicious palpable abnormalities. Note on Rose Marie scores and lifetime risk: 1. A Rose Marie score greater than 3% is considered moderate risk. If this is the case, consider specialist referral to assess eligibility for a risk reducing agent. 2. If overall lifetime risk for the development of breast cancer is 20% or higher, the patient may qualify for future screening with alternating mammogram and breast MRI. Electronically signed and approved by: Tanner Covarrubias M.D. Radiologis
== END | disposition home or self-care (01) ==
LOC: RADMAMWWP 14:11
PROVIDERS: ATTEND Internal Medicine
DX: Z12.31 Encounter for screening mammogram for malignant neoplasm of breast (principal); Z80.3 Family history of malignant neoplasm of breast; Z78.0 Asymptomatic menopausal state
CPT/HCPCS: 77063; 77067

== ENCOUNTER → 2023-07-28 | Outpatient (CLI) | payer MEDICARE ==
--- NOTE | 2023-07-28 15:09 | MM ---
Reason for Exam: Additional evaluation requested from abnormal screening. Last screening mammogram was performed less than 1 month ago. Patient History: Menarche at age 13. First Full-Term at age 26. Hysterectomy at age 50. Postmenopausal. 2006, Cyst Aspiration on the Left side. Benign Excisional Biopsy on the left side. Excisional Biopsy on the Right side. Paternal grandmother had breast cancer. Mother had breast cancer, age 50. Risk Values: Rose Marie 5 year model risk: 5.2%. NCI Lifetime model risk: 13.0%. Prior Study Comparison: 07/06/2021 Bilateral Screening Mammogram, [facility]. 07/09/2022 Bilateral MG 3D screening mammo w/cad, [facility]. 07/20/2023 Bilateral MG 3D screening mammo w/cad, [facility]. Tissue Density: Left: There are scattered fibroglandular densities. Findings: Analyzed By CAD. The questioned area of central nodularity becomes less defined on additional views. Given the appearance on the screening exam, precautionary 6 month follow-up is recommended. Overall Assessment: Probably benign, BI-RAD 3 Management: Diagnostic Mammogram of the left breast in 6 months. See note below in regards to patient's increased 5 year Rose Marie score. Results were given to the patient verbally at the time of exam. Patient should continue monthly self-breast exams. A clinical breast exam by your physician is recommended on an annual basis. This exam should not preclude additional follow-up of suspicious palpable abnormalities. Note on Rose Marie scores and lifetime risk: 1. A Rose Marie score greater than 3% is considered moderate risk. If this is the case, consider specialist referral to assess eligibility for a risk reducing agent. 2. If overall lifetime risk for the development of breast cancer is 20% or higher, the patient may qualify for future screening with alternating mammogram and breast MRI. Electronically signed and approved by: Ricardo Meredith M.D. Radiologist
== END | disposition home or self-care (01) ==
LOC: RADMAMWWP 14:39
PROVIDERS: ATTEND Internal Medicine
DX: R92.323 Mammographic fibroglandular density, bilateral breasts (principal); Z78.0 Asymptomatic menopausal state; Z80.3 Family history of malignant neoplasm of breast; Z90.710 Acquired absence of both cervix and uterus
CPT/HCPCS: 77065; G0279; 77061

== ENCOUNTER → 2023-08-18 | Outpatient (CLI) | payer MEDICARE ==
[2023-08-18 15:56] LABS: ALT 37 U/L (8-44); AST 25 U/L (13-35); Albumin 4.2 g/dL (3.8-4.9); Alkaline Phosphatase 83 U/L (41-126); Blood Urea Nitrogen 16.8 mg/dL (9.0-27.0); Calcium 9.2 mg/dL (8.7-10.3); Carbon Dioxide 21.9 mmol/L (21.6-31.8); Chloride 107 mmol/L (96-109); Globulin 2.1 g/dL (1.6-3.3); Glucose 101 mg/dL (70-110); Potassium 4.3 mmol/L (3.5-5.5); Sodium 142 mmol/L (135-145); Total Bilirubin 0.7 mg/dL (0.3-1.2); Total Protein 6.3 g/dL (6.2-8.2)
== END | disposition home or self-care (01) ==
LOC: LABWHC1 10:40
PROVIDERS: ATTEND Internal Medicine Endocrinology, Diabetes & Metabolism
DX: M81.0 Age-related osteoporosis without current pathological fracture (principal)
CPT/HCPCS: 36415; 80053; 82306; 82523; 83970; 84443

== ENCOUNTER → 2023-09-02 | Outpatient (CLI) | payer MEDICARE ==
--- NOTE | 2023-09-02 15:42 | US ---
EXAMINATION TYPE: US thyroid st tissue head/neck DATE OF EXAM: 09/02/2023 COMPARISON: 10/25/2022 03/30/2021 04/15/2020 05/20/2017 03/04/2016 04/02/2015 CLINICAL INDICATION: Female, 72 years old with history of E04.1 NONTOXIC SINGLE THYROID NODULE; Patie nt denies any changes from prior exam. GLAND SIZE: Right Lobe: Surgically absent cm Overall Parenchyma: Left Lobe: 3.8 x 1.4 x 1.8 Overall Parenchyma: heterogenous Isthmus Thickness: 0.4m NODULES RIGHT: # of nodules measured on right: 0 LEFT: # of nodules measured on left: 2 1. 0.9 x 0.7 x 0.7 cm, upper medial, solid or almost completely solid, isoechoic nodule, which is Circular, with smooth margins, with echogenic foci. TR 3 Prior size: 0.8 x 0.5 x 0.7 cm 2. 1.0 X 0.6 x 0.7 cm, lower mid, cystic or almost completely cystic, very hypoechoic nodule, whic h is wider than tall, with smooth margins, with echogenic foci. Prior size: 0.9 x 0.5 x 0.8 cm ISTHMUS: # of nodules measured in the isthmus: 0 Bilateral neck scanned, no evidence of lymphadenopathy. IMPRESSION: Mildly suspicious nodule left lobe thyroid. Consider follow-up. 2017 ACR TI-RADS LEVEL: *Highest TI-RADS level nodule reported
== END | disposition home or self-care (01) ==
LOC: RADUSWWP 13:15
PROVIDERS: ATTEND Internal Medicine Endocrinology, Diabetes & Metabolism
DX: E04.1 Nontoxic single thyroid nodule (principal)
CPT/HCPCS: 76536

== ENCOUNTER → 2024-01-13 | Outpatient (CLI) | payer MEDICARE ==
[2024-01-13 09:36] LABS: Appearance,Urine Clear (Clear); Bacteria,Urine Rare /hpf; Bilirubin,Urine Negative (Negative); Blood,Urine Negative (Negative); Color,Urine Yellow; Glucose,Urine (UA) Negative (Negative); Ketones,Urine Trace (Negative); Leukocyte Esterase,Urine Trace (Negative); Mucus,Urine Occasional /hpf; Nitrite,Urine Negative (Negative); Protein,Urine Trace (Negative); Specific Gravity,Urine 1.023 (1.001-1.035); Squamous Epithelial Cell,Urine 2 /hpf (0-4); WBC,Urine 2 /hpf (0-5)
[2024-01-13 10:20] LABS: Basophils # (A) 0.04 X 10*3/uL (0.00-0.10); Basophils % (A) 0.6 %; Eosinophils # (A) 0.16 X 10*3/uL (0.04-0.35); Eosinophils % (A) 2.4 %; HCT 41.4 % (37.2-46.3); HGB 13.8 g/dL (12.0-15.0); Lymphocytes # (A) 1.55 X 10*3/uL (0.90-5.00); Lymphocytes % (A) 23.3 %; MCH 31.4 pg (27.0-32.0); MCHC 33.3 g/dL (32.0-37.0); MCV 94.3 FL (80.0-97.0); Mean Platelet Volume 9.6 FL (9.5-12.2); Monocytes # (A) 0.68 X 10*3/uL (0.20-1.00); Monocytes % (A) 10.2 %; NRBC Per 100 WBC 0 X 10*3/uL (0.00-0.01); Neutrophils # (A) 4.19 X 10*3/uL (1.80-7.70); Neutrophils % (A) 63.2 %; Platelet Count 320 X 10*3/uL (140-440); RBC 4.39 X 10*6/uL (4.10-5.20); RDW 12.4 % (11.5-14.5); WBC 6.64 X 10*3/uL (4.50-10.00)
[2024-01-13 15:50] LABS: BUN/Creat Ratio 17.25 Ratio (12.00-20.00); Blood Urea Nitrogen 13.8 mg/dL (9.0-27.0); Chloride 103 mmol/L (96-109); Chol/HDL Ratio 1.87 Ratio; Glucose 105 mg/dL (70-110); LDL Cholesterol,Calculated 44.9 mg/dL (0.0-131.0); Magnesium 2.1 mg/dL (1.5-2.4); Potassium 3.9 mmol/L (3.5-5.5); Sodium 139 mmol/L (135-145)
[2024-01-13 15:51] LABS: ALT 36 U/L (8-44); AST 26 U/L (13-35); Albumin 4.2 g/dL (3.8-4.9); Alkaline Phosphatase 96 U/L (41-126); Calcium 9.3 mg/dL (8.7-10.3); Carbon Dioxide 22.1 mmol/L (21.6-31.8); Globulin 2.1 g/dL (1.6-3.3); Total Protein 6.3 g/dL (6.2-8.2)
--- NOTE | 2024-01-16 10:46 | MM ---
Reason for Exam: Follow-up at short interval from prior study. Last screening mammogram was performed 6 month(s) ago. Patient History: Menarche at age 13. First Full-Term at age 26. Hysterectomy at age 50. Postmenopausal. Patient has history of breast feeding. 2007, Cyst Aspiration on the Left side. Benign Excisional Biopsy on the left side. Excisional Biopsy on the Right side. Paternal grandmother had breast cancer. Mother had breast cancer, age 50. Risk Values: Rose Marie 5 year model risk: 5.2%. NCI Lifetime model risk: 12.3%. Prior Study Comparison: 10/29/2016 Bilateral Screening Mammogram, [facility]. 11/23/2017 Bilateral Screening Mammogram, [facility]. 11/28/2018 Bilateral Screening Mammogram, [facility]. 07/06/2021 Bilateral Screening Mammogram, [facility]. 07/09/2022 Bilateral MG 3D screening mammo w/cad, [facility]. 07/20/2023 Bilateral MG 3D screening mammo w/cad, [facility]. 07/28/2023 Left MG 3D work up w/cad LT, [facility]. Tissue Density: Left: There are scattered areas of fibroglandular density. Findings: Analyzed By CAD. The pattern is symmetrical. Coarse benign-appearing calcifications are in the mid left breast. Couple of additional rounded calcifications are present. No suspicious cluster microcalcifications are evident. Vascular calcifications noted. No suspicious groups of microcalcifications, spiculated or lobular masses, architectural distortion or other secondary signs of malignancy are mammographically apparent. Overall Assessment: Benign, BI-RAD 2 Management: Screening Mammogram of both breasts in 6 months. A negative mammogram report should not preclude additional follow up of suspicious palpable abnormalities. Patient should continue monthly self breast exam. A clinical breast exam by your physician is recommended on an annual basis and results should be correlated with mammographic findings. Note on Rose Marie scores and lifetime risk: 1. A Rose Marie score greater than 3% is considered moderate risk. If this is the case, consider specialist referral to assess eligibility for a risk reducing agent. 2. If overall lifetime risk for the development of breast cancer is 20% or higher, the patient may qualify for future screening with alternating mammogram and breast MRI. Electronically signed and approved by: Rito Bernal D.O. Radiologis
== END | disposition home or self-care (01) ==
LOC: RADMAMWWP 07:30
PROVIDERS: ATTEND Internal Medicine
DX: R92.322 Mammographic fibroglandular density, left breast (principal); R92.8 Other abnormal and inconclusive findings on diagnostic imaging of breast; E78.2 Mixed hyperlipidemia; G47.33 Obstructive sleep apnea (adult) (pediatric); E55.9 Vitamin D deficiency, unspecified; E03.9 Hypothyroidism, unspecified; R92.1 Mammographic calcification found on diagnostic imaging of breast; Z78.0 Asymptomatic menopausal state; Z80.3 Family history of malignant neoplasm of breast
CPT/HCPCS: 80061; 80053; 84443; 83735; 84550; 85025; 81001; 82306; 83036; 77065; G0279; 77061

== ENCOUNTER → 2024-06-25 | Outpatient (CLI) | payer MEDICARE ==
--- NOTE | 2024-06-25 15:26 | US ---
EXAMINATION TYPE: US carotid duplex BILAT DATE OF EXAM: 06/25/2024 COMPARISON: US(03/01/2022) CLINICAL INDICATION: Female, 73 years old with history of I65.23 CAROTID STENOSIS I35.0 AORTIC VALVE STENOSIS; Additional History: F/U TECHNIQUE: Grayscale, color Doppler and spectral Doppler evaluation of the bilateral carotid systems and vertebral arteries. Indirect Doppler criteria was utilized. FINDINGS: EXAM MEASUREMENTS: RIGHT: Peak Systolic Velocity (PSV) cm/sec ----- Right CCA: 73.5 ----- Right ICA: 144 ----- Right ECA: 137 ICA/CCA ratio: 2.0 RIGHT: End Diastole cm/sec ----- Right CCA: 17.0 ----- Right ICA: 39.6 ----- Right ECA: 43.5 LEFT: Peak Systolic Velocity (PSV) cm/sec ----- Left CCA: 74.0 ----- Left ICA: 122 ----- Left ECA: 116 ICA/CCA ratio: 1.7 LEFT: End Diastole cm/sec ----- Left CCA: 19.0 ----- Left ICA: 30.8 ----- Left ECA: 13.9 VERTEBRALS (direction of flow): Right Vertebral: Antegrade Left Vertebral: Antegrade Rhythm: Normal [employer] OPERATOR HELPER NOTES: Slightly elevated velocities in Rt ICA Mid/Dist & Rt ECA No significant stenosis or plaque seen bilaterally Color Doppler imaging shows patency with blood flow throughout the carotid artery. Spectral waveforms are within normal limits. IMPRESSION: Right: 50-69% stenosis of the carotid bifurcation. Left: No hemodynamically significant stenosis. Criteria for Assigning % of Stenosis / Diameter reduction (Estimation based on the indirect measurements of the internal carotid artery velocities (ICA PSV). 1. Normal (no stenosis)=ICA PSV < 125 cm/s: ratio < 2.0: ICA EDV<40 cm/s. 2. Less than 50% stenosis=ICA PSV < 125 cm/s: ratio < 2.0: ICA EDV<40 cm/s. 3. 50 to 69% stenosis=ICA PSV of 125 to 230 cm/s: ration 2.0 ? 4.0: ICA EDV 40-100 cm/s. 4. Greater than 70% stenosis to near occlusion= ICA PSV > 230 cm/s: ratio > 4.0: ICA EDV > 100 cm/s. 5. Near occlusion= ICA PSV velocities may be low or undetectable: variable ratio and ICA EDV. 6. Total occlusion=unable to detect flow. [facility], , 06/25/2024 3:24 PM
--- NOTE | 2024-06-25 19:23 | CA ---
Transthoracic Echo Report Name: Susy Adan Age: 73 Gender: F : 1950 Exam Date: 06/25/2024 15:49 Exam Location: [place] [facility] Ht (in): 62 Wt (lb): 178 Ordering Physician: Deisy Alexis MD Attending/Referring Phys: [employer] Worker Suzanne Herrera RDCS Procedure CPT: Indications: i35.0 Cardiac Hx: Technical Quality: Good Contrast 1: Total Dose (mL): Contrast 2: Total Dose (mL): MEASUREMENTS (Male / Female) Normal Values 2D ECHO LV Diastolic Diameter PLAX 4.3 cm 4.2 - 5.9 / 3.9 - 5.3 cm LV Systolic Diameter PLAX 2.8 cm IVS Diastolic Thickness 1.2 cm 0.6 - 1.0 / 0.6 - 0.9 cm LVPW Diastolic Thickness 1.1 cm 0.6 - 1.0 / 0.6 - 0.9 cm LV Relative Wall Thickness 0.5 RV Internal Dim ED PLAX 3.6 cm LA Systolic Diameter LX 3.8 cm 3.0 - 4.0 / 2.7 - 3.8 cm LV Diastolic Volume MOD 4C 82.9 cm??? LV Systolic Volume MOD 4C 31.4 cm??? LV Ejection Fraction MOD 4C 62.1 % LV Cardiac Index MOD 4C 1911.7 cm???/min???m??? LV Diastolic Length 4C 7.5 cm LV Systolic Length 4C 6.1 cm LV Diastolic Volume MOD 2C 68.4 cm??? LV Systolic Volume MOD 2C 34.3 cm??? LV Ejection Fraction MOD 2C 49.8 % LV Cardiac Index MOD 2C 1263.6 cm???/min???m??? LV Diastolic Length 2C 6.7 cm LV Systolic Length 2C 5.5 cm M-MODE Aortic Root Diameter MM 2.9 cm AV Cusp Separation MM 1.7 cm DOPPLER AV Peak Velocity 198.7 cm/s AV Peak Gradient 15.8 mmHg Mitral E Point Velocity 74.0 cm/s Mitral A Point Velocity 96.1 cm/s Mitral E to A Ratio 0.8 MV Deceleration Time 236.8 ms MV E' Velocity 6.5 cm/s Mitral E to MV E' Ratio 11.3 TR Peak Velocity 226.8 cm/s TR Peak Gradient 20.6 mmHg Right Ventricular Systolic Press 30.6 mmHg FINDINGS Left Ventricle Left ventricular ejection fraction is estimated at 55-60 %. Left ventricular cavity size normal. Mildly increased septal wall thickness. Mildly increased posterior wall thickness. Normal left ventricular wall motion. Right Ventricle Mild right ventricular dilatation. Right ventricular systolic pressure within normal limits. Right Atrium Normal right atrial size. No right atrial thrombus or mass seen. Left Atrium Normal left atrial size. No left atrial thrombus or mass present. Mitral Valve Structurally normal mitral valve. Mitral annular calcification. Trace to mild mitral regurgitation. Aortic Valve Trileaflet aortic valve. No aortic valve stenosis or regurgitation. Tricuspid Valve Structurally normal tricuspid valve. Mild tricuspid regurgitation. Pulmonic Valve Structurally normal pulmonic valve. Trace pulmonic regurgitation. Pericardium No pericardial or pleural effusion. Aorta Normal size aortic root and proximal ascending aorta. CONCLUSIONS Mild LVH with preserved systolic function Mildly enlarged right ventricle No evidence for any significant valvular stenosis including aortic stenosis Previewed by: Dr. Kristopher Fontenot MD (Electronically Signed) Final Date: 25 June 2024 19:22
== END | disposition home or self-care (01) ==
LOC: RADUSWWP 14:40
PROVIDERS: ATTEND Internal Medicine
DX: I35.0 Nonrheumatic aortic (valve) stenosis (principal); I65.23 Occlusion and stenosis of bilateral carotid arteries
CPT/HCPCS: 93306; 93880

== ENCOUNTER → 2024-07-17 | Outpatient (CLI) | payer MEDICARE ==
[2024-07-17 13:23] VITALS: BP 106/66; PULSE 77; RESP 14; TEMP 97.7
--- NOTE | 2024-07-17 14:14 | P.SLEEP ---
History of Present Illness H&P Date: 07/17/24 This is a very pleasant 73-year-old female patient who is coming in regarding her obstructive sleep apnea. The patient was diagnosed having obstructive sleep apnea based on a polysomnography that was done on 03/07/2018 and this was done in an outside sleep center. I was able to review the records from the polysomnography that was done and the patient was diagnosed having moderate to severe MICHEL with an AHI of 26.4. At that time, the patient was referred for an oral appliance and the patient has been wearing her oral appliance for the past 6 years with good results. Noted the patient has history of morbid obesity. She used to weigh as high as 270 pounds. She has done a gastric bypass surgery many years back. She has lost around 50 pounds following her surgery. Subsequently, over the past 1 year, the patient was started on Zepbound and she has lost additional 60 pounds. Current weight is down 278 pounds. Body mass index is 32.3. The patient is requesting reevaluation to assess the ongoing need for her oral appliance. She goes to bed at around 10:30 PM. Wakes up 6:30 AM in the morning. No major hypersomnia or sleepiness during the day. Denies having any significant sleep fragmentation. Denies waking up choking or gasping for air. She is able to generate sleep without any major difficulties. She sleeps on her sides. Does not take long naps during the day. Her current [place] score is at 6. Does not fall asleep while driving. No restlessness in lower extremities. No sleepwalking. No sleep talking. No nightmares. No parasomnias. Review of Systems Constitutional: Reports weight loss (Due to previous gastric bypass surgery and recently the patient is taking Zepbound ) Eyes: denies as per HPI, denies blurred vision, denies bulging eye, denies decreased vision, denies diplopia, denies discharge, denies dry eye, denies irritation, denies itching, denies pain, denies photophobia, denies loss of peripheral vision, denies loss of vision, denies tunnel vision/blind spots Ears: deny: decreased hearing, ear discharge, earache, tinnitus Ears, nose, mouth and throat: Reports as per HPI Breasts: absent: as per HPI, change in shape, gynecomastia, masses, nipple discharge, pain, skin changes, swelling Cardiovascular: Reports as per HPI Respiratory: Reports sleep apnea Gastrointestinal: Reports as per HPI Genitourinary: Reports as per HPI Menstruation: Reports as per HPI Musculoskeletal: Reports as per HPI Musculoskeletal: absent: ankle pain, ankle stiffness, ankle swelling, as per HPI, elbow pain, elbow stiffness, elbow swelling, foot pain, foot stiffness, foot swelling, hand pain, hand stiffness, hand swelling, hip pain, hip stiffness, hip swelling, knee pain, knee stiffness, knee swelling, shoulder pain, shoulder stiffness, shoulder swelling, wrist pain, wrist stiffness, wrist swelling Integumentary: Reports as per HPI Neurological: Reports as per HPI Psychiatric: Reports as per HPI Endocrine: Reports as per HPI Hematologic/Lymphatic: Reports as per HPI Allergic/Immunologic: Reports as per HPI Past Medical History Past Medical History: Hyperlipidemia, Musculoskeletal Disorder, Thyroid Disorder Additional Past Medical History / Comment(s): hannah cataracts,emacular degeneration,genetic skin disorder. osteoporosis. On Zepbound for weight loss. Lower back problems-spinal fusion. History of Any Multi-Drug Resistant Organisms: None Reported Past Surgical History: Cholecystectomy, Hysterectomy, Orthopedic Surgery Additional Past Surgical History / Comment(s): partial thyroidectomy,breast biopsy,mandible surgery ,bariatric surgery,spinal fusion L4-5, Arthroscopy - both knees, cataract removal, thyroidectomy, tooth implant, mandible surgery. Past Anesthesia/Blood Transfusion Reactions: No Reported Reaction Past Psychological History: No Psychological Hx Reported Smoking Status: Never smoker Past Alcohol Use History: Occasional Past Drug Use History: None Reported - Past Family History Father Family Medical History: Asthma, Hyperlipidemia, Sleep Apnea/CPAP/BIPAP Additional Family Medical History / Comment(s): Snoring, Mental illness (Brother with Mental illness, sleep apnea, snoring) Mother Family Medical History: Hyperlipidemia Additional Family Medical History / Comment(s): Arthritis, breast cancer, possible mental illness Medications and Allergies Home Medications Medication Instructions Recorded Confirmed Type Gabapentin [Neurontin] 300 mg PO DAILY 11/06/18 07/17/24 History Atorvastatin [Lipitor] 40 mg PO DAILY 12/07/21 07/17/24 History Levothyroxine Sodium [Synthroid] 50 mcg PO DAILY 12/07/21 07/17/24 History Tirzepatide [Zepbound] 7.5 mg SQ WEEKLY 07/17/24 07/17/24 History Allergies Allergy/AdvReac Type Severity Reaction Status Date / Time No Known Allergies Allergy Verified 12/07/21 08:09 Physical Exam Vitals: Vital Signs Temp Pulse Resp BP Pulse Ox 07/17/24 13:22 97.7 F 77 14 106/66 93 L Intake and Output 07/16/24 07/17/24 07/17/24 22:59 06:59 14:59 Other: Weight 80.853 kg The patient appeared well nourished and normally developed. Vital signs as documented. Head exam is unremarkable. No scleral icterus or corneal arcus noted. Neck is without jugular venous distension, thyromegaly, or carotid bruits. Carotid upstrokes are brisk bilaterally. The patient has a slight overbite and crowding of the posterior pharynx with a Mallampati class IV Lungs are clear to auscultation and percussion. Cardiac exam reveals the PMI to be normally sized and situated. Rhythm is regular. First and second heart sounds normal. No murmurs, rubs or gallops. Abdominal exam reveals normal bowel sounds, no masses, no organomegaly and no aortic enlargement. Extremities are nonedematous and both femoral and pedal pulses are normal. Examination of the skin revealed no evidence of significant rashes, suspicious appearing nevi or other concerning lesions. Neurologically, the patient is awake and alert and the patient does not have any focal neurological deficit. Cranial nerves are essentially intact. Assessment and Plan Plan: Obstructive sleep apnea, diagnosed back in 2018, moderate to severe disease with an AHI of 26.4, treated with an oral appliance with good results. Patient is coming in for evaluation following her significant weight loss due to a combination of previous gastric bypass surgery and medical treatment with Zepbound. Morbid obesity, status post gastric bypass surgery, currently has abdominal, lost significant amount of weight in the order of 100 pounds. Her current BMI is 32.3. History of hypersomnia, currently inactive and stable and the patient is a poor score is at 5 Hyperlipidemia Osteoporosis Macular degeneration/cataracts Chronic back pain with a previous spinal fusion Plan The patient will need a reevaluation. I am recommending a home sleep study to reestablish the diagnosis of sleep apnea and its severity. Based on the results of the home sleep study, we will make further recommendations regarding her ongoing need for an oral appliance. It may be aydee aubreeable to also do a home sleep study while her wearing the oral appliance to assess success of treatment should there be ongoing issues with obstructive sleep apnea. Continue Zepbound Maintain good sleep hygiene measures Treat comorbidities Will continue to follow Sleep Note - Sleep Data ESS Total: 5 - Sleep Note Sleep Note: Temperature: 97.7 F Pulse Rate: 77 Respiratory Rate: 14 Blood Pressure: 106/66 SpO2: 93 Height: 5 ft 2.2 in Weight: 80.853 kg BMI: Neck Circumference: 14.5
== END ==
LOC: 3 N SLEEP 13:07
PROVIDERS: ATTEND Internal Medicine Critical Care Medicine
DX: G47.33 Obstructive sleep apnea (adult) (pediatric) (principal); E66.01 Morbid (severe) obesity due to excess calories; M81.0 Age-related osteoporosis without current pathological fracture; H35.30 Unspecified macular degeneration; M54.9 Dorsalgia, unspecified; G89.29 Other chronic pain; Z68.32 Body mass index [BMI] 32.0-32.9, adult
CPT/HCPCS: 99211

== ENCOUNTER → 2024-07-17 | Outpatient (CLI) | payer MEDICARE ==
[2024-07-17 20:37] LABS: ALT 24 U/L (8-44); AST 25 U/L (13-35); Albumin 4.1 g/dL (3.8-4.9); Albumin/Globulin Ratio 1.86 Ratio (1.60-3.17); Alkaline Phosphatase 86 U/L (41-126); BUN/Creat Ratio 15.71 Ratio (12.00-20.00); Calcium 9.1 mg/dL (8.7-10.3); Chloride 106 mmol/L (96-109); Globulin 2.2 g/dL (1.6-3.3); Glucose 93 mg/dL (70-110); Sodium 140 mmol/L (135-145); T4, Free (Free Thyroxine) 1.65 ng/dL (0.80-1.80); Total Bilirubin 0.9 mg/dL (0.3-1.2); Total Protein 6.3 g/dL (6.2-8.2)
== END | disposition home or self-care (01) ==
LOC: LABWHC1 12:25
PROVIDERS: ATTEND Internal Medicine
DX: M81.0 Age-related osteoporosis without current pathological fracture (principal); E03.9 Hypothyroidism, unspecified; E55.9 Vitamin D deficiency, unspecified
CPT/HCPCS: 36415; 80053; 82306; 84439; 84443

== ENCOUNTER → 2024-07-23 | Outpatient (CLI) | payer MEDICARE ==
--- NOTE | 2024-07-23 16:33 | MM ---
Reason for Exam: Screening (asymptomatic). Last screening mammogram was performed 12 month(s) ago. Patient History: Menarche at age 13. First Full-Term at age 26. Hysterectomy at age 50. Postmenopausal. Patient has history of breast feeding. 2007, Cyst Aspiration on the Left side. Benign Excisional Biopsy on the left side. Excisional Biopsy on the Right side. Paternal grandmother had breast cancer. Mother had breast cancer, age 50. Risk Values: Rose Marie 5 year model risk: 5.2%. NCI Lifetime model risk: 12.3%. Prior Study Comparison: 07/20/2023 Bilateral MG 3D screening mammo w/cad, [facility]. 07/28/2023 Left MG 3D work up w/cad LT, [facility]. 01/13/2024 Left MG 3D diag mammo wo cad LT, [facility]. Tissue Density: There are scattered areas of fibroglandular density. Findings: Analyzed By CAD. Coarse/dystrophic calcifications middle to posterior depth left breast are unchanged. Asymmetric density along the retroareolar plane right CC view anterior to middle depth is unchanged. There is no suspicious group of microcalcifications or new suspicious mass in either breast. Overall Assessment: Benign, BI-RAD 2 Management: Screening Mammogram of both breasts in 1 year. See note below in regards to patient's increased 5 year Rose Marie score. Patient should continue monthly self-breast exams. A clinical breast exam by your physician is recommended on an annual basis. This exam should not preclude additional follow-up of suspicious palpable abnormalities. Note on Rose Marie scores and lifetime risk: 1. A Rose Marie score greater than 3% is considered moderate risk. If this is the case, consider specialist referral to assess eligibility for a risk reducing agent. 2. If overall lifetime risk for the development of breast cancer is 20% or higher, the patient may qualify for future screening with alternating mammogram and breast MRI. [facility], , 07/23/2024 4:31 PM. Electronically signed and approved by: Ricardo Meredith M.D. Radiologist
== END | disposition home or self-care (01) ==
LOC: RADMAMWWP 13:41
PROVIDERS: ATTEND Internal Medicine
DX: Z12.31 Encounter for screening mammogram for malignant neoplasm of breast (principal); R92.323 Mammographic fibroglandular density, bilateral breasts; Z78.0 Asymptomatic menopausal state; Z80.3 Family history of malignant neoplasm of breast
CPT/HCPCS: 77063; 77067

== ENCOUNTER → 2024-08-01 | Outpatient (CLI) | payer MEDICARE ==
--- NOTE | 2024-08-07 14:12 | P.PCN ---
Date of Procedure: 08/01/24 Operative Findings: Home sleep study testing Date of service is 08/01/2024 Pertinent history This is a very pleasant 73-year-old female patient who is coming in regarding her obstructive sleep apnea. The patient was diagnosed having obstructive sleep apnea based on a polysomnography that was done on 03/07/2018 and this was done in an outside sleep center. I was able to review the records from the polysomnography that was done and the patient was diagnosed having moderate to severe MICHEL with an AHI of 26.4. At that time, the patient was referred for an oral appliance and the patient has been wearing her oral appliance for the past 6 years with good results. Noted the patient has history of morbid obesity. She used to weigh as high as 270 pounds. She has done a gastric bypass surgery many years back. She has lost around 50 pounds following her surgery. Subsequently, over the past 1 year, the patient was started on Zepbound and she has lost additional 60 pounds. Current weight is down 278 pounds. Body mass index is 32.3. The patient is requesting reevaluation to assess the ongoing nee d for her oral appliance. She goes to bed at around 10:30 PM. Wakes up 6:30 AM in the morning. No major hypersomnia or sleepiness during the day. Denies having any significant sleep fragmentation. Denies waking up choking or gasping for air. She is able to generate sleep without any major difficulties. She sleeps on her sides. Does not take long naps during the day. Her current [place] score is at 6. Does not fall asleep while driving. No restlessness in lower extremities. No sleepwalking. No sleep talking. No nightmares. No parasomnias. Pertinent physical findings Body mass index is 32.3 Technical description The [employer] system was used to complete his home sleep study. This is a type III home sleep study evaluation. The total recording duration was 6 hours and 35 minutes. The study started at 10:48 PM and ended at 5:24 AM. There was a total of 6 hours and 23 minutes of flow monitoring in 6 hours and 25 minutes of oxygen saturation monitoring. Results The respiratory analysis showed a total of 10 obstructive apneas and 88 obstructive hypopneas. The resulting AHI was 15.3 consistent with mild obstructive sleep apnea. Noted the severity of sleep apnea is improved along with weight loss. Oxygenation analysis Baseline pulse ox was 92%, average pulse ox was 92%, lowest pulse ox was 84% and the patient spent only 15 minutes of the sleep time below pulse ox of 89% Cardiac summary Average heart rate was 71 with a minimum heart rate of 63 and a maximum heart rate at 108 Assessment Obstructive sleep apnea, mild in severity with an AHI of 15.3. Note that the patient has been diagnosed having obstructive sleep apnea, diagnosed back in 2018, moderate to severe disease with an AHI of 26.4, treated with an oral appliance with good results. Patient has had significant weight loss due to a combination of previous gastric bypass surgery and medical treatment with Zepbound. Morbid obesity, status post gastric bypass surgery, currently has abdominal, lost significant amount of weight in the order of 100 pounds. Her current BMI is 32.3. History of hypersomnia, currently inactive and stable and the patient is a poor score is at 5 Hyperlipidemia Osteoporosis Macular degeneration/cataracts Chronic back pain with a previous spinal fusion Plan The home sleep study shows residual obstructive sleep apnea which is moderately severe. Sure enough, the severity of sleep apnea is less along with her weight loss. Nevertheless, there is still ongoing obstructive sleep apnea which is essentially mild to moderate in severity with an AHI of 15.3. Based on this, there is ongoing benefit from using the oral appliance. I would also recommend doing a home sleep study while wearing the oral appliance to assess treatment success and this can be done at a later stage. For now, the patient will be advised to continue using her oral appliance. This will be discussed with the patient at length. Continue Zepbound Maintain good sleep hygiene measures Treat comorbidities Will continue to follow
== END ==
LOC: 3 N SLEEP 10:53
PROVIDERS: ATTEND Internal Medicine Critical Care Medicine
DX: G47.33 Obstructive sleep apnea (adult) (pediatric) (principal); E66.9 Obesity, unspecified; E78.5 Hyperlipidemia, unspecified; G89.29 Other chronic pain; M54.50 Low back pain, unspecified; H35.30 Unspecified macular degeneration; M81.0 Age-related osteoporosis without current pathological fracture; Z86.59 Personal history of other mental and behavioral disorders; Z68.32 Body mass index [BMI] 32.0-32.9, adult

== ENCOUNTER → 2024-10-03 | Outpatient (CLI) | payer MEDICARE ==
[2024-10-03 10:38] LABS: Appearance,Urine Clear (Clear); Bilirubin,Urine Negative (Negative); Blood,Urine Negative (Negative); Color,Urine Dark Yellow (Yellow); Ketones,Urine Trace (Negative); Nitrite,Urine Negative (Negative); Specific Gravity,Urine 1.023 (1.001-1.030)
[2024-10-03 10:39] LABS: Basophils # (A) 0.05 X 10*3/uL (0.00-0.10); Basophils % (A) 0.9 %; Eosinophils # (A) 0.14 X 10*3/uL (0.04-0.35); Eosinophils % (A) 2.4 %; HGB 12.1 g/dL (12.0-15.0); Lymphocytes % (A) 29.5 %; MCH 31.1 pg (27.0-32.0); MCHC 31.8 g/dL (32.0-37.0); MCV 97.7 FL (80.0-97.0); Mean Platelet Volume 9.6 FL (9.5-12.2); Monocytes # (A) 0.57 X 10*3/uL (0.20-1.00); Monocytes % (A) 9.9 %; NRBC Per 100 WBC 0 X 10*3/uL (0.00-0.01); Neutrophils # (A) 3.28 X 10*3/uL (1.80-7.70); Platelet Count 355 X 10*3/uL (140-440); RBC 3.89 X 10*6/uL (4.10-5.20); RDW 12.5 % (11.5-14.5); WBC 5.76 X 10*3/uL (4.50-10.00)
[2024-10-03 10:43] LABS: Bacteria,Urine Trace (None Seen)
[2024-10-03 14:56] LABS: ALT 29 U/L (8-44); AST 25 U/L (13-35); Albumin 3.7 g/dL (3.8-4.9); Albumin/Globulin Ratio 2.18 Ratio (1.60-3.17); Alkaline Phosphatase 80 U/L (41-126); Blood Urea Nitrogen 9.1 mg/dL (9.0-27.0); Carbon Dioxide 21.6 mmol/L (21.6-31.8); Chloride 107 mmol/L (96-109); Chol/HDL Ratio 1.96 Ratio; Globulin 1.7 g/dL (1.6-3.3); Glucose 101 mg/dL (70-110); LDL Cholesterol,Calculated 50.3 mg/dL (0.0-131.0); Potassium 3.9 mmol/L (3.5-5.5); Sodium 142 mmol/L (135-145); Total Bilirubin 0.6 mg/dL (0.3-1.2); Total Protein 5.4 g/dL (6.2-8.2); VLDL Calculation 9.54 mg/dL (5.00-40.00)
[2024-10-03 16:07] LABS: Magnesium 2.3 mg/dL (1.5-2.4)
== END | disposition home or self-care (01) ==
LOC: LABWHC1 07:10
PROVIDERS: ATTEND Internal Medicine
DX: Z00.00 Encounter for general adult medical examination without abnormal findings (principal); E78.2 Mixed hyperlipidemia; E03.9 Hypothyroidism, unspecified; E55.9 Vitamin D deficiency, unspecified
CPT/HCPCS: 36415; 80053; 80061; 81001; 82306; 83036; 83735; 84443; 84550; 85025

== ENCOUNTER 2024-11-21 09:07 | Day surgery (SDC) | payer MEDICARE ==
[2024-11-21 09:41] VITALS: TEMP 98.5
[2024-11-21] MEDS: IV FLUID CONTINUATION 1,000 ML IV ONE ×2 (09:41→10:16)
[2024-11-21] MEDS: LACTATED RINGERS 1,000 ML IV SCH (09:41)
[2024-11-21] MEDS ORDERED: PROPOFOL 10 MG/ML 20 ML VIAL IV ONE (10:17)
--- NOTE | 2024-11-21 10:36 | P.PCN ---
Date of Procedure: 11/21/24 Procedure(s) Performed: BRIEF HISTORY: Patient is a 73-year-old pleasant white female scheduled for an elective colonoscopy as a part of screening for colon cancer. PROCEDURE PERFORMED: Colonoscopy with biopsy and snare polypectomy. PREOPERATIVE DIAGNOSIS: Screening for colon cancer. IV sedation per Anesthesia. PROCEDURE: After informed consent was obtained, the patient, was brought into the endoscopy unit. IV sedation was administered by Anesthesia under continuous monitoring. Digital rectal examination was normal. Initially the Olympus CF-160 flexible video colonoscope was then inserted in the rectum, gradually advanced into the cecum without any difficulty. Careful examination was performed as the scope was gradually being withdrawn. Ileocecal valve and the appendiceal orifice were visualized and appeared normal. Prep was excellent. Mucosa of the cecum, had a 3 mm polyp that was removed by cold biopsy. In the hepatic section there was a 7 mm polyp removed by cold snare polypectomy. Rest of the ascending colon, transverse colon, appeared normal. In the proximal transverse colon there was a 3 mm polyp removed by cold biopsy. In the sigmoid colon there was a 6 mm polyp removed by cold snare polypectomy. Scattered left-sided diverticulosis seen. Rest of the descending colon, sigmoid colon, and rectum appeared normal. Retroflexion was performed in the rectum and no lesions were seen. The patient tolerated the procedure well. IMPRESSION: 3 mm cecal polyp status post cold biopsy 7 mm hepatic flexure polyp status post cold snare polypectomy 3 mm transverse colon polyp status post cold biopsy 6 mm sigmoid colon polyp status post snare polypectomy Scattered sigmoid diverticulosis RECOMMENDATIONS: Findings of this examination were discussed with the patient as well as her family. She was advised to follow the biopsy results and have repeat colonoscopy in 3 years.
[2024-11-21 10:57] VITALS: BP 118/58; PULSE 68; RESP 16
== END 2024-11-21 11:11 | disposition home or self-care (01) ==
LOC: ORWHC2ENDO 09:07
PROVIDERS: ATTEND Internal Medicine Gastroenterology
DX: Z12.11 Encounter for screening for malignant neoplasm of colon (principal); K57.30 Diverticulosis of large intestine without perforation or abscess without bleeding; D12.0 Benign neoplasm of cecum; D12.3 Benign neoplasm of transverse colon; D12.5 Benign neoplasm of sigmoid colon; E78.5 Hyperlipidemia, unspecified; M19.90 Unspecified osteoarthritis, unspecified site; E07.9 Disorder of thyroid, unspecified; Z79.02 Long term (current) use of antithrombotics/antiplatelets; Z79.82 Long term (current) use of aspirin; Z79.899 Other long term (current) drug therapy; M81.0 Age-related osteoporosis without current pathological fracture; Z90.89 Acquired absence of other organs
CPT/HCPCS: 88305; 45380; 45385; J2704